=== PATIENT | female | born 1990 | race Two or more races ===

== ENCOUNTER 2016-12-21 22:49 | Emergency (ER) | payer SELFPAY ==
--- NOTE | 2016-12-21 23:10 | ER Document Report ---
ED Medical Screen (RME) - General Chief Complaint: Sore Throat Stated Complaint: SORE THROAT Time seen by provider: 23:08 Mode of Arrival: Ambulatory Information source: Patient Notes: 26-year-old female presents to ED for sore throat for the last week. Patient denies fevers. Last menstrual period 12/14/2016. I have greeted and performed a rapid initial assessment of this patient. A comprehensive ED assessment and evaluation of the patient, analysis of test results and completion of medical decision making process will be conducted by an additional ED providers. TRAVEL OUTSIDE OF THE [place] IN LAST 30 DAYS: No - Related Data Allergies/Adverse Reactions: No Known Allergies Allergy (Verified 06/13/15 19:58) Past Medical History - Immunizations Immunizations up to date: No Hx Diphtheria, Pertussis, Tetanus Vaccination: No Physical Exam - Vital signs Vitals: Temp Pulse Resp BP Pulse Ox 97.7 F 64 16 84/50 L 98 12/21/16 23:01 12/21/16 23:01 12/21/16 23:01 12/21/16 23:01 12/21/16 23:01 Course - Vital Signs Vital signs: Temp Pulse Resp BP Pulse Ox 97.7 F 64 16 84/50 L 98 12/21/16 23:01 12/21/16 23:01 12/21/16 23:01 12/21/16 23:01 12/21/16 23:01
--- NOTE | 2016-12-22 02:46 | ER Document Report ---
ED ENT - General Chief Complaint: Sore Throat Stated Complaint: SORE THROAT Time seen by provider: 02:38 Mode of Arrival: Ambulatory Notes: 26-year-old female presents to ED a cough runny nose sore throat for a week. She denies having any fevers. TRAVEL OUTSIDE OF THE [place] IN LAST 30 DAYS: No - HPI Patient complains to provider of: Throat problem Onset: Last week Onset/Duration: Intermittent Quality of pain: Sharp Severity: Moderate Pain Level: 3 Location of pain: Throat Associated symptoms: Cough, Runny nose, Sinus drainage, Sore throat. denies: Fever Similar symptoms previously: Yes Recently seen / treated by doctor: No - Related Data Allergies/Adverse Reactions: No Known Allergies Allergy (Verified 12/22/16 01:36) Past Medical History - General Information source: Patient - Social History Smoking Status: Current Every Day Smoker Cigarette use (# per day): Yes - 1 ppd Chew tobacco use (# tins/day): No Smoking Education Provided: Yes - less than a minute Frequency of alcohol use: None Drug Abuse: None Occupation: patient observer Lives with: Family Family History: CAD, CVA, DM, Hyperlipidemia, Hypertension, Malignancy, Thyroid Disfunction, Other - Mother has asthma Patient has suicidal ideation: No Patient has homicidal ideation: No - Past Medical History Cardiac Medical History: Reports: None Pulmonary Medical History: Reports: None EENT Medical History: Reports: None Neurological Medical History: Reports: None Endocrine Medical History: Reports: None Renal/ Medical History: Reports: None Malignancy Medical History: Reports: None GI Medical History: Reports: None Musculoskeltal Medical History: Reports None Skin Medical History: Reports None Psychiatric Medical History: Reports: None Traumatic Medical History: Reports: None Infectious Medical History: Reports: None Surgical Hx: Negative - Immunizations Immunizations up to date: No Hx Diphtheria, Pertussis, Tetanus Vaccination: No Review of Systems - Review of Systems Constitutional: Fever, Recent illness EENT: Nose discharge, Sinus discharge Cardiovascular: No symptoms reported Respiratory: Cough Gastrointestinal: No symptoms reported Genitourinary: No symptoms reported Female Genitourinary: No symptoms reported Musculoskeletal: No symptoms reported Skin: No symptoms reported Hematologic/Lymphatic: No symptoms reported Neurological/Psychological: No symptoms reported Physical Exam - Vital signs Vitals: Temp Pulse Resp BP Pulse Ox 97.7 F 64 16 84/50 L 98 12/21/16 23:01 12/21/16 23:01 12/21/16 23:01 12/21/16 23:01 12/21/16 23:01 Interpretation: Normal Notes: Temp 97.8 apical pulse 56 O2 sat 97% blood pressure 93/57 with respirations of 17 - General General appearance: Appears well, Alert - HEENT Head: Normocephalic, Atraumatic Eyes: Normal Pupils: PERRL Ears: Normal External canal: Normal Tympanic membrane: Normal Sinus: Normal Nasal: Purulent discharge, Swelling Mouth/Lips: Normal Mucous membranes: Normal Pharynx: Erythema, Post nasal drainage Neck: Normal - Respiratory Respiratory status: No respiratory distress Chest status: Nontender Breath sounds: Nonproductive cough Chest palpation: Normal - Cardiovascular Rhythm: Regular Heart sounds: Normal auscultation Murmur: No - Abdominal Inspection: Normal Distension: No distension Bowel sounds: Normal Tenderness: Nontender Organomegaly: No organomegaly - Back Back: Normal, Nontender - Extremities General upper extremity: Normal inspection, Nontender, Normal color, Normal ROM , Normal temperature General lower extremity: Normal inspection, Nontender, Normal color, Normal ROM , Normal temperature, Normal weight bearing. No: Gustavo's sign - Neurological Neuro grossly intact: Yes Cognition: Normal Orientation: AAOx4 Rene Coma Scale Eye Opening: Spontaneous [place] Coma Scale Verbal: Oriented [place] Coma Scale Motor: Obeys Commands Rene Coma Scale Total: 15 Speech: Normal Motor strength normal: LUE, RUE, LLE, RLE Sensory: Normal - Psychological Associated symptoms: Normal affect, Normal mood - Skin Skin Temperature: Warm Skin Moisture: Dry Skin Color: Normal Course - Vital Signs Vital signs: Temp Pulse Resp BP Pulse Ox 97.7 F 64 16 84/50 L 98 12/21/16 23:01 12/21/16 23:01 12/21/16 23:01 12/21/16 23:01 12/21/16 23:01 Discharge - Discharge Clinical Impression: Sore throat (viral) Upper respiratory infection Qualifiers: URI type: unspecified URI Qualified Code(s): J06.9 - Acute upper respiratory infection, unspecified Condition: Stable Disposition: HOME, SELF-CARE Instructions: Family Physicians / Practices Additional Instructions: UPPER RESPIRATORY ILLNESS: You have a viral infection of the respiratory passages -- a "cold." This common infection causes nasal congestion, drainage, and often sore throat and cough. It is highly contagious. The disease usually lasts about 10 to 14 days. There is no "cure" for the viral infection -- it must run its course. If there is a complication, such as bacterial infection in the nose, sinuses, middle ear, or bronchial tubes, antibiotics may be required. The antibiotics won't affect the virus. Drink plenty of fluids. A humidifier may help. An expectorant medication or decongestant may make you more comfortable. Use acetaminophen or ibuprofen for fever or aches. See the doctor if fever persists over two days, if there is any significant worsening of your symptoms, or if you simply fail to improve as expected. SORE THROAT: Sore throats may be caused by viruses, bacteria, or fungi. Most are due to a virus, and must get better on their own. Bacterial sore throats, particularly those due to "strep," need treatment with antibiotics. If an antibiotic is prescribed, be sure to take the medication for a full 10 days. Failure to take the antibiotic can result in complications such as rheumatic fever. Sometimes, an injection of antibiotics is given instead of pills or liquid. This single "shot" is equal in effectiveness to the oral medication. To relieve symptoms, take acetaminophen for pain. Sip clear liquids frequently, or eat popsicles or ice chips. Anesthetic sprays or lozenges may help. Make sure the air in the room is not too dry. Avoid using decongestants or antihistamines. Call the doctor if there is no improvement in two days, or if you have difficulty breathing, increasing throat pain, high fever, rash, or frequent vomiting. DECONGESTANT MEDICATION: A decongestant medicine has been prescribed. Often this medicine is combined in the same tablet with an antihistamine or expectorant. This type of medicine is helpful in treating a bad cold or sinus condition, as well as in treatment of the nasal congestion of hay fever. It is not of much benefit for lung infections. Decongestant medicines are related to stimulants. They can cause an increase in blood pressure and heart rate. Persons with heart disease and high blood pressure should not take decongestants without discussing this with the physician. If you develop palpitations, chest pain, headache, or tremors, stop the medicine and consult your physician. COUGH-SUPPRESSANT & EXPECTORANT MEDICATION: You are to use a cough medication as needed for relief of symptoms. This medicine is a combination of an expectorant (to make the mucous thinner and more easily "coughed up") and a cough suppressant (to reduce the frequency of coughing). The cough-suppressant medicine is related to narcotics. You may experience mild nausea and sleepiness. Some patients who are very sensitive to narcotics may have stomach pain from this medicine. Taking the medicine with food reduces these side effects. Do not drive or work with machinery until you know how this medicine affects you. The expectorant should have no side effects. Iodine-containing expectorants (such as organidin) should not be taken by persons with active thyroid disease unless approved by your doctor. Call the doctor if you develop shortness of breath, hives, rash, itching, lightheadedness, or severe nausea and vomiting. USE OF ACETAMINOPHEN (Tylenol): Acetaminophen may be taken for pain relief or fever control. It's much safer than aspirin, offering a wider range of "safe" dosages. It is safe during . Some brand names are Tylenol, Panadol, Datril, Anacin 3, Tempra, and Liquiprin. Acetaminophen can be repeated every four hours. The following are maximum recommended dosages: >89 pounds or adults 650 mg to 900 mg Acetaminophen can be repeated every four hours. Maximum dose not to exceed 4000 mg a day. SMOKING: If you smoke, you should stop smoking. The tar and chemicals in cigarette smoke are harmful. Smoking has been shown to cause: emphysema chronic bronchitis lung cancer mouth and throat cancer stomach and pancreas cancer premature aging defects In addition, smoking increases ear and lung infections in children of smokers. Gargle after each meal and at bedtime with following solution. 1 tablespoon of table salt 1 teaspoon of baking soda 1 quart of boiling water Mixed ingredients 4 and a quart jar with a limited and use 5-10 mL to gargle each time. FOLLOW-UP CARE: If you have been referred to a physician for follow-up care, call the physician s office for an appointment as you were instructed or within the next two days. If you experience worsening or a significant change in your symptoms, notify the physician immediately or return to the Emergency Department at any time for re-evaluation. Forms: Return to Work, Smoking Cessation Education
[2016-12-22 03:41] VITALS: BP 93/57
== END 2016-12-22 03:41 | disposition home or self-care (01) ==
LOC: ER 22:49
DX: J06.9 Acute upper respiratory infection, unspecified (principal); J02.9 Acute pharyngitis, unspecified; R05 Cough; R09.89 Other specified symptoms and signs involving the circulatory and respiratory systems; F17.210 Nicotine dependence, cigarettes, uncomplicated
CPT/HCPCS: 87070; 87880; 99283

== ENCOUNTER 2017-06-07 12:51 | Emergency (ER) | payer MEDICAID ==
--- NOTE | 2017-06-07 14:22 | ER Document Report ---
ED Medical Screen (RME) - General TRAVEL OUTSIDE OF THE [place] IN LAST 30 DAYS: No <NCIOLLE LEUNG - Last Filed: 06/07/17 14:04> <ANAYA BRITTON - Last Filed: 06/07/17 21:11> - General Chief Complaint: Abdominal Pain Stated Complaint: DIZZINESS, STOMACH PAIN Time Seen by Provider: 06/07/17 14:00 Notes: Patient is a 27 year old female presenting to the emergency department for abdominal pain. Patient states she had a positive test on Saturday and her last menstrual cycle was on 04/05/17. Patient has had some abdominal cramping , dizziness, and sore breasts for the past week. Patient also states she felt "short of breath for a while." Patient's symptoms are intermittent. Patient is A1. Patient states she had an a long time ago. Patient has not seen OBGYN or had an ultrasound. Patient has an appointment for OB next week. (NICOLLE LEUNG) - Related Data Allergies/Adverse Reactions: No Known Allergies Allergy (Verified 06/07/17 12:57) Past Medical History - Social History Cigarette use (# per day): No Chew tobacco use (# tins/day): No Frequency of alcohol use: None Drug Abuse: None Renal/ Medical History: Denies: Hx Peritoneal Dialysis Surgical Hx: Negative - Immunizations Immunizations up to date: No Hx Diphtheria, Pertussis, Tetanus Vaccination: No <NICOLLE LEUNG - Last Filed: 06/07/17 14:04> Physical Exam <NICOLLE LEUNG - Last Filed: 06/07/17 14:04> <ANAYA BRITTON - Last Filed: 06/07/17 21:11> - Vital signs Vitals: Temp Pulse Resp BP Pulse Ox 98.5 F 76 16 102/53 L 100 06/07/17 12:56 06/07/17 12:56 06/07/17 12:56 06/07/17 12:56 06/07/17 12:56 - Notes Notes: GENERAL: Alert, interacts well. No acute distress. LUNGS: No respiratory distress. ABDOMEN: Soft, non-tender. Non-distended. Bowel sounds present in all 4 quadrants. (NICOLLE LEUNG) Course - Laboratory Result Diagrams: 06/07/17 14:10 06/07/17 14:04 <ANAYA BRITTON - Last Filed: 06/07/17 21:11> - Vital Signs Vital signs: Temp Pulse Resp BP Pulse Ox 98.5 F 68 15 99/51 L 99 06/07/17 12:56 06/07/17 18:36 06/07/17 18:36 06/07/17 18:36 06/07/17 18:36 - Laboratory Laboratory results interpreted by me: 06/07/17 06/07/17 13:30 14:04 BUN 6 L Creatinine 0.48 L Beta HCG, Quant [id number] H Ur Leukocyte Esterase SMALL H Doctor's Discharge <NICOLLE LEUNG - Last Filed: 06/07/17 14:04> <ANAYA BRITTON - Last Filed: 06/07/17 21:11> - Discharge Clinical Impression: Abdominal pain, Condition: Good Disposition: HOME, SELF-CARE Instructions: Abdominal Pain ([facility]) Additional Instructions: Return for any problems or concerns. Call to arrange follow-up with a dairy and food laboratory assistant. Ultrasound today shows you to be approximately 8 weeks 4 days . Prescriptions: Vit #105/Iron/FA/Dha [Prena1 True Combo Pack] 1 each PO DAILY #30 combo..pkg Forms: Smoking Cessation Education, Return to Work Referrals: SHANE CROUCH MD [ACTIVE STAFF] - Follow up in 1 week Scribe Documentation - Scribe Written by Scribe:: Lois Montoya 06/07/17 [id number] acting as scribe for :: Pamela <NICOLLE LEUNG - Last Filed: 06/07/17 14:04>
[2017-06-07 14:39] LABS: ABSOLUTE EOSINOPHILS # (AUTO) 0.3 10^3/uL (0.0-0.6); ABSOLUTE LYMPHOCYTES (AUTO) 1.7 10^3/uL (0.5-4.7); ABSOLUTE MONOCYTES (AUTO) 0.3 10^3/uL (0.1-1.4); BASOPHILS % (AUTO) 0.6 % (0-2); EOSINOPHILS % (AUTO) 3.5 % (0-6); HEMATOCRIT 37.9 % (36.0-47.0); HEMOGLOBIN 12.7 g/dL (12.0-15.5); HGB HCT DIFFERENCE 0.2; LYMPHOCYTES % (AUTO) 23.6 % (13-45); MEAN CORPUSCULAR HEMOGLOBIN 30.4 pg (27.0-33.4); MEAN CORPUSCULAR HGB CONC 33.5 g/dL (32.0-36.0); MEAN CORPUSCULAR VOLUME 91 fl (80-97); MONOCYTES % (AUTO) 4.7 % (3-13); RED BLOOD COUNT 4.17 10^6/uL (3.72-5.28); SEGMENTED NEUTROPHILS % (AUTO) 67.6 % (42-78); WHITE BLOOD COUNT 7.3 10^3/uL (4.0-10.5)
[2017-06-07 14:42] LABS: ALANINE AMINOTRANSFERASE 20 U/L (9-52); ALBUMIN 4.2 g/dL (3.5-5.0); ALKALINE PHOSPHATASE 38 U/L (38-126); ANION GAP 9 (5-19); ASPARTATE AMINO TRANSFERASE 22 U/L (14-36); BILIRUBIN,DIRECT 0.3 mg/dL (0.0-0.4); BILIRUBIN,TOTAL 0.8 mg/dL (0.2-1.3); BLOOD UREA NITROGEN 6 mg/dL (7-20); CALCIUM 9.1 mg/dL (8.4-10.2); CARBON DIOXIDE 24 mmol/L (22-30); CHLORIDE 104 mmol/L (98-107); CREATININE RESULT 0.48 mg/dL (0.52-1.25); GLUCOSE 80 mg/dL (75-110); POTASSIUM 4.4 mmol/L (3.6-5.0); TOTAL PROTEIN 7.3 g/dL (6.3-8.2)
[2017-06-07 15:14] LABS: APPEARANCE,URINE CLEAR; BILIRUBIN,URINE NEGATIVE (NEGATIVE); GLUCOSE, URINE NEGATIVE (NEGATIVE); KETONES,URINE NEGATIVE (NEGATIVE); LEUKOCYTE ESTERASE,URINE SMALL (NEGATIVE); NITRITE,URINE NEGATIVE (NEGATIVE); PROTEIN,URINE NEGATIVE (NEGATIVE); URINE SPECIFIC GRAVITY 1.005; UROBILINOGEN,URINE NEGATIVE mg/dL (<2.0)
--- NOTE | 2017-06-07 16:35 | RADIOLOGY REPORT (SQ) ---
EXAM DESCRIPTION: U/S OB TRANSVAG W/DOPPLER COMPLETED DATE/TIME: 06/07/2017 4:24 pm REASON FOR STUDY: abd pain, +preg, r/o ectopic COMPARISON: None. TECHNIQUE: Transvaginal static and realtime grayscale images acquired of the pelvis. Additional juan cted spectral and color Doppler images recorded. All images stored on PACs. bHC,260 LIMITATIONS: None. FINDINGS: FETUS: Living intrauterine . EGA: 8 weeks 4 day EMMANUEL: 01/13/2018 FHR: 175 beats per minute. SUBCHORIONIC BLEED: No SIZE OF BLEED: Not applicable. UTERUS: No masses. No anomalies. CERVICAL LENGTH: 3.7 cm Closed. RIGHT ADNEXA: Right ovary was not visualized No adnexal free fluid. No adnexal masses. LEFT ADNEXA: Normal ovary with normal vascular flow. Isoechoic area is identified measuring 1.5 x 1.9 x 1.6 cm most consistent with a corpus lutein cyst. FREE FLUID: None. OTHER: No other significant finding. IMPRESSION: LIVING INTRAUTERINE . EGA 8 weeks 4 days Trimester of : First - 0 to 13 weeks. TECHNICAL DOCUMENTATION: JOB ID: [id number] [employer] All Rights Reserved
[2017-06-07 18:37] VITALS: BP 99/51
--- NOTE | 2017-06-07 19:12 | ER Document Report ---
ED GI/ - General Chief Complaint: Abdominal Pain Stated Complaint: DIZZINESS, ABDOMINAL PAIN Time Seen by Provider: 06/07/17 14:00 Mode of Arrival: Ambulatory Information source: Patient TRAVEL OUTSIDE OF THE [place] IN LAST 30 DAYS: No - HPI Notes: 06/07/17 19:13 This is a 27-year-old G2 female who presents with the following complaint per RN me. "Patient is a 27 year old female presenting to the emergency department for abdominal pain. Patient states she had a positive test on Saturday and her last menstrual cycle was on 04/05/17. Patient has had some abdominal cramping, dizziness, and sore breasts for the past week. Patient also states she felt "short of breath for a while." Patient's symptoms are intermittent. Patient is A1. Patient states she had an a long time ago. Patient has not seen OBGYN or had an ultrasound. Patient has an appointment for OB next week." She confirms that she had a positive test but no vaginal bleeding or discharge. She has had some mild lower abdominal cramping and some mild dizziness. Regarding her shortness of breath, this is been ongoing for a long time even prior to her . She has no shortness of breath now. She thought maybe she had asthma as it runs in the family. She has not yet seen an OB doctor. - Related Data Allergies/Adverse Reactions: No Known Allergies Allergy (Verified 06/07/17 12:57) Past Medical History - Social History Smoking Status: Current Every Day Smoker Cigarette use (# per day): No Chew tobacco use (# tins/day): No Frequency of alcohol use: None Drug Abuse: None Family History: CAD, CVA, DM, Hyperlipidemia, Hypertension, Malignancy, Thyroid Disfunction, Other - Mother has asthma Renal/ Medical History: Denies: Hx Peritoneal Dialysis Surgical Hx: Negative - Immunizations Immunizations up to date: No Hx Diphtheria, Pertussis, Tetanus Vaccination: No Review of Systems - Review of Systems -: Yes All other systems reviewed and negative Physical Exam - Vital signs Vitals: Temp Pulse Resp BP Pulse Ox 98.5 F 76 16 102/53 L 100 06/07/17 12:56 06/07/17 12:56 06/07/17 12:56 06/07/17 12:56 06/07/17 12:56 Interpretation: Normal - Notes Notes: GENERAL: VS as per nursing doc. Well-appearing, well-nourished and in no acute distress. HEAD: Atraumatic, normocephalic. EYES: Pupils equal round and reactive to light, extraocular movements intact, sclera anicteric, no conjunctival injection or discharge. ENT: Nares patent, oropharynx clear without exudates, moist mucous membranes. NECK: Normal range of motion, supple without lymphadenopathy. LUNGS: Breath sounds clear to auscultation bilaterally and equal. No wheezes rales or rhonchi. HEART: Regular rate and rhythm without murmurs. ABDOMEN: Soft, non-tender, normoactive bowel sounds. No guarding, no rebound. No masses appreciated. No [place] sign. BACK: No CVA tenderness. EXTREMITIES: Normal range of motion, no calf tenderness, no edema. NEUROLOGICAL: Cranial nerves grossly intact. Normal speech. Normal sensory and motor exams. No gross cerebellar abnormalities. PSYCH: Normal mood, normal affect. SKIN: Warm, dry, normal turgor, no lesions noted. Course - Vital Signs Vital signs: Temp Pulse Resp BP Pulse Ox 98.5 F 68 15 99/51 L 99 06/07/17 12:56 06/07/17 18:36 06/07/17 18:36 06/07/17 18:36 06/07/17 18:36 - Laboratory Result Diagrams: 06/07/17 14:10 06/07/17 14:04 Laboratory results interpreted by me: 06/07/17 06/07/17 13:30 14:04 BUN 6 L Creatinine 0.48 L Beta HCG, Quant [id number] H Ur Leukocyte Esterase SMALL H Discharge - Discharge Clinical Impression: Abdominal pain, Condition: Good Disposition: HOME, SELF-CARE Instructions: Abdominal Pain ([facility]) Additional Instructions: Return for any problems or concerns. Call to arrange follow-up with a roustabout crew pusher. Ultrasound today shows you to be approximately 8 weeks 4 days . Prescriptions: Vit #105/Iron/FA/Dha [Prena1 True Combo Pack] 1 each PO DAILY #30 combo..pkg Forms: Smoking Cessation Education Referrals: SHANE CROUCH MD [ACTIVE STAFF] - Follow up in 1 week
== END 2017-06-07 19:31 | disposition home or self-care (01) ==
LOC: ER 12:51
DX: O26.91 Pregnancy related conditions, unspecified, first trimester (principal); R10.9 Unspecified abdominal pain; R42 Dizziness and giddiness; O99.331 Smoking (tobacco) complicating pregnancy, first trimester
CPT/HCPCS: 36415; 76817; 80053; 81001; 84702; 85025; 86900; 86901; 93976; 99284

== ENCOUNTER 2017-12-11 16:00 | Outpatient (CLI) | payer MEDICAID | END 2017-12-11 17:40 | disposition home or self-care (01) | LOC: LC 16:00 | PROVIDERS: ATTEND Student in an Organized Health Care Education/Training Program | PROC: 4A1HXCZ Monitoring of Products of Conception, Cardiac Rate, External Approach (ICD-10-PCS; principal; 2017-12-11) | DX: O24.419 Gestational diabetes mellitus in pregnancy, unspecified control (principal); Z3A.35 35 weeks gestation of pregnancy | CPT/HCPCS: 59025 ==

== ENCOUNTER 2017-12-15 22:45 | Outpatient (CLI) | payer MEDICAID ==
--- NOTE | 2017-12-15 22:57 | Non Stress Test Report ---
Non Stress Test Datetime Report Generated by CPN: 12/15/2017 22:57 DEMOGRAPHIC EGA NST: 35.5 INDICATION Indication for Study: Diabetes Mellitus Indication for Study: Diabetes Mellitus VITAL SIGNS Temperature - NST: 97.6 Pulse - NST: 93 RESP - NST: 16 NBPSYS NST: 83 NBPDIA NST: 48 MONITORING Monitor Explained: Monitor Explained; Test Explained; Patient Verbalized Understanding Monitor Explained: Monitor Explained; Test Explained; Patient Verbalized Understanding Time on Monitor: 12/11/2017 16:14 Time on Monitor: 12/11/2017 16:10 Time off Monitor: 12/11/2017 17:33 NST Duration: 79 NST INTERVENTIONS NST Interventions: PO Hydration; Reposition Patient NST Interventions: PO Hydration; Reposition Patient Physician Notified NST: H Richardson CNM BABY A: [id number] BABY A Movement : Present Contraction Frequency : none Accelerations : 15X15 Decelerations : None Variability : Moderate 6-25bpm NST Review: Meets Criteria for Reactive NST NST Review and Verified By : Hien camp RNC NST Results: Reactive NST REPORT Report Trigger: Send Report
[2017-12-15 23:13] LABS: APPEARANCE,URINE SLIGHTLY-CLOUDY; BILIRUBIN,URINE NEGATIVE (NEGATIVE); COLOR,URINE YELLOW; GLUCOSE, URINE NEGATIVE (NEGATIVE); KETONES,URINE NEGATIVE (NEGATIVE); LEUKOCYTE ESTERASE,URINE SMALL (NEGATIVE); NITRITE,URINE NEGATIVE (NEGATIVE); PROTEIN,URINE NEGATIVE (NEGATIVE); URINE SPECIFIC GRAVITY 1.004; UROBILINOGEN,URINE NEGATIVE mg/dL (<2.0)
[2017-12-15 23:31] LABS: URINE AMPHETAMINES SCREEN NEGATIVE; URINE BARBITURATES SCREEN NEGATIVE; URINE BENZODIAZEPINES SCREEN NEGATIVE; URINE COCAINE SCREEN NEGATIVE; URINE MARIJUANA (THC) SCREEN NEGATIVE; URINE METHADONE SCREEN NEGATIVE; URINE PHENCYCLIDINE SCREEN NEGATIVE
[2017-12-16] MEDS ORDERED: RINGERS SOLUTION,LACTATED 1,000 ML IV PRN (00:49)
== END 2017-12-16 01:01 | disposition home or self-care (01) ==
LOC: LC 22:45
PROVIDERS: ATTEND Obstetrics & Gynecology Gynecology
PROC: 4A1HXCZ Monitoring of Products of Conception, Cardiac Rate, External Approach (ICD-10-PCS; principal; 2017-12-15)
DX: O24.913 Unspecified diabetes mellitus in pregnancy, third trimester (principal); O99.513 Diseases of the respiratory system complicating pregnancy, third trimester; J06.9 Acute upper respiratory infection, unspecified; Z3A.36 36 weeks gestation of pregnancy
CPT/HCPCS: 59025; 80307; 81005

== ENCOUNTER 2017-12-16 01:10 | Emergency (ER) | payer MEDICAID ==
[2017-12-16 01:41] VITALS: BP 89/72
[2017-12-16] MEDS ORDERED: ACETAMINOPHEN 325 MG TABLET PO ONE (01:48)
[2017-12-16] MEDS ORDERED: LIDOCAINE 5% (700 MG) TRANSDERMAL ADH..PATCH TP ONE (01:48)
[2017-12-16 02:39] LABS: A TYPE INFLUENZA AG POSITIVE (NEGATIVE); B INFLUENZA AG NEGATIVE (NEGATIVE)
--- NOTE | 2017-12-16 03:00 | RADIOLOGY REPORT (SQ) ---
EXAM DESCRIPTION: CHEST PA/LAT CLINICAL HISTORY: cough sob COMPARISON: 06/10/2016 FINDINGS: Frontal and lateral views of the chest. The cardiomediastinal silhouette has normal size and contour. No consolidation, pneumothorax, or pleural effusion. No displaced rib fractures identified. Upper abdominal soft tissues are unremarkable. Low lung volumes. IMPRESSION: 1. No acute pulmonary process identified.
[2017-12-16] MEDS ORDERED: OSELTAMIVIR PHOSPHATE 75 MG CAPSULE PO ONE (03:26)
--- NOTE | 2017-12-16 03:29 | ER Document Report ---
ED General - General Chief Complaint: Cold Symptoms Stated Complaint: COLD SYMPTOMS Time Seen by Provider: 12/16/17 01:46 TRAVEL OUTSIDE OF THE [place] IN LAST 30 DAYS: No - HPI Patient complains to provider of: Feeling unwell Notes: Feeling unwell cough complaining of pain with cough ongoing since Saturday. Patient denies any sick contacts patient currently is approximately 33 weeks . Patient was seen in OB and then discharged told to come to the ER for further evaluation of her flulike symptoms. Patient denies getting a flu shot this year. Upon my evaluation patient looks uncomfortable otherwise nontoxic looking. Patient is also complaining of some lower back pain. Patient states a urinalysis was performed in OB triage with no signs of infection. - Related Data Allergies/Adverse Reactions: No Known Allergies Allergy (Verified 12/16/17 00:48) Past Medical History - Social History Smoking Status: Current Every Day Smoker Family History: CAD, CVA, DM, Hyperlipidemia, Hypertension, Malignancy, Thyroid Disfunction, Other - Mother has asthma Patient has suicidal ideation: No Patient has homicidal ideation: No Renal/ Medical History: Denies: Hx Peritoneal Dialysis - Immunizations Immunizations up to date: No Hx Diphtheria, Pertussis, Tetanus Vaccination: No Review of Systems - Review of Systems Constitutional: Other - Flulike symptoms EENT: No symptoms reported Cardiovascular: No symptoms reported Respiratory: No symptoms reported Gastrointestinal: No symptoms reported Genitourinary: No symptoms reported Female Genitourinary: No symptoms reported Musculoskeletal: No symptoms reported Skin: No symptoms reported Hematologic/Lymphatic: No symptoms reported Neurological/Psychological: No symptoms reported Physical Exam - Vital signs Vitals: Temp Pulse Resp BP Pulse Ox 99.9 F 110 H 16 89/72 L 98 12/16/17 01:14 12/16/17 01:14 12/16/17 01:14 12/16/17 01:14 12/16/17 01:14 Interpretation: Normal - General General appearance: Appears well, Alert - HEENT Head: Normocephalic, Atraumatic Eyes: Normal Pupils: PERRL - Respiratory Respiratory status: No respiratory distress Chest status: Nontender Breath sounds: Normal Chest palpation: Normal - Cardiovascular Rhythm: Regular Heart sounds: Normal auscultation Murmur: No - Abdominal Inspection: Normal Distension: No distension Bowel sounds: Normal Tenderness: Nontender Organomegaly: No organomegaly - Back Back: Normal, Nontender - Extremities General upper extremity: Normal inspection, Nontender, Normal color, Normal ROM , Normal temperature General lower extremity: Normal inspection, Nontender, Normal color, Normal ROM , Normal temperature, Normal weight bearing. No: Gustavo's sign - Neurological Neuro grossly intact: Yes Cognition: Normal Orientation: AAOx4 Rene Coma Scale Eye Opening: Spontaneous Maynard Coma Scale Verbal: Oriented Maynard Coma Scale Motor: Obeys Commands Rene Coma Scale Total: 15 Speech: Normal Motor strength normal: LUE, RUE, LLE, RLE Sensory: Normal - Psychological Associated symptoms: Normal affect, Normal mood - Skin Skin Temperature: Warm Skin Moisture: Dry Skin Color: Normal Course - Re-evaluation Re-evalutation: 12/16/17 06:04 Patient laboratory studies were reviewed from OB triage. No signs of overt infection. Patient had chest x-ray performed. No signs of pneumonia. Patient did return positive for influenza A. Patient will be started on Tamiflu patient was encouraged to drink plenty of fluids also progression of her Reglan was given to the patient for any nausea that she may incur. Patient states understanding of her diagnosis and will be discharged home - Vital Signs Vital signs: Temp Pulse Resp BP Pulse Ox 99.9 F 90 18 106/64 100 12/16/17 01:14 12/16/17 01:42 12/16/17 01:42 12/16/17 01:40 12/16/17 01:42 Discharge - Discharge Clinical Impression: Influenza A Condition: Good Disposition: HOME, SELF-CARE Instructions: Influenza ([facility]) [id number] Additional Instructions: Your testing today shows that your positive for influenza type A. Please make sure you are drinking plenty water to stay hydrated. You can expect to have fevers chills body aches upper respiratory symptoms. Please take Tamiflu as prescribed. Please make sure you informed your [employer] that she was diagnosed with influenza type a on your next visit. Return to ER for any worsening of her symptoms or any other concerns. Prescriptions: Metoclopramide HCl [Reglan] 5 mg PO Q6 #30 tablet Oseltamivir Phosphate [Tamiflu 75 mg Capsule] 75 mg PO BID 5 Days capsule Forms: Return to Work Referrals: LESLEY MANCERA MD [Primary Care Provider] - Follow up as needed
== END 2017-12-16 03:36 | disposition home or self-care (01) ==
LOC: ER 01:10
DX: O99.519 Diseases of the respiratory system complicating pregnancy, unspecified trimester (principal); J10.1 Influenza due to other identified influenza virus with other respiratory manifestations; O26.899 Other specified pregnancy related conditions, unspecified trimester; R05 Cough; O99.330 Smoking (tobacco) complicating pregnancy, unspecified trimester; O99.89 Other specified diseases and conditions complicating pregnancy, childbirth and the puerperium; M54.5 Low back pain; Z3A.00 Weeks of gestation of pregnancy not specified
CPT/HCPCS: 99284; 87804; 71046; J3490 ×3

== ENCOUNTER 2018-01-08 16:32 | Outpatient (CLI) | payer MEDICAID ==
--- NOTE | 2018-01-08 16:35 | Non Stress Test Report ---
Non Stress Test Datetime Report Generated by CPN: 01/08/2018 16:35 DEMOGRAPHIC EGA NST: 36.0 INDICATION Indication for Study: Ordered by Provider MONITORING Monitor Explained: Monitor Explained; Test Explained; Patient Verbalized Understanding Time on Monitor: 12/15/2017 22:58 Time off Monitor: 12/16/2017 00:30 NST Duration: 92 NST INTERVENTIONS NST Interventions: IV Fluids Physician Notified NST: Dr. Holman BABY A: [id number] BABY A Movement : Present Contraction Frequency : x1 FHR Baseline : 150 Accelerations : 15X15 Decelerations : None Variability : Moderate 6-25bpm NST Review: Meets Criteria for Reactive NST NST Review and Verified By : sarath ELAM Results: Reactive NST REPORT Report Trigger: Send Report
--- NOTE | 2018-01-08 17:17 | Non Stress Test Report ---
Non Stress Test Datetime Report Generated by CPN: 01/08/2018 17:17 DEMOGRAPHIC EGA NST: 39.3 INDICATION Indication for Study: Diabetes Mellitus; Ordered by Provider MONITORING Monitor Explained: Monitor Explained; Test Explained Time on Monitor: 01/08/2018 16:43 Time off Monitor: 01/08/2018 17:07 NST Duration: 24 NST INTERVENTIONS NST Interventions: PO Hydration; Reposition Patient Physician Notified NST: Dr Leigh BABY A Contraction Frequency : denies FHR Baseline : 135 Decelerations : None NST Review: Meets Criteria for Reactive NST NST Review and Verified By : BL ROULUND, RN NST Results: Reactive NST REPORT Report Trigger: Send Report
== END 2018-01-08 16:59 | disposition home or self-care (01) ==
LOC: LC 16:32
PROVIDERS: ATTEND Obstetrics & Gynecology
PROC: 4A1HXCZ Monitoring of Products of Conception, Cardiac Rate, External Approach (ICD-10-PCS; principal; 2018-01-08)
DX: O24.419 Gestational diabetes mellitus in pregnancy, unspecified control (principal); Z3A.39 39 weeks gestation of pregnancy
CPT/HCPCS: 59025

== ENCOUNTER 2018-01-15 16:41 | Outpatient (CLI) | payer MEDICAID | END 2018-01-15 17:50 | disposition home or self-care (01) | LOC: LC 16:41 | PROVIDERS: ATTEND Obstetrics & Gynecology Gynecology | PROC: 4A1HXCZ Monitoring of Products of Conception, Cardiac Rate, External Approach (ICD-10-PCS; principal; 2018-01-15) | DX: Z34.93 Encounter for supervision of normal pregnancy, unspecified, third trimester (principal); Z3A.40 40 weeks gestation of pregnancy | CPT/HCPCS: 59025 ==

== ENCOUNTER 2018-01-16 03:57 | Inpatient (IN) | payer MEDICAID ==
[2018-01-16] MEDS ORDERED: RINGERS SOLUTION,LACTATED 1,000 ML IV ONE (04:30)
[2018-01-16] MEDS ORDERED: RINGERS SOLUTION,LACTATED 1,000 ML IV PRN (04:30)
[2018-01-16 04:46] LABS: APPEARANCE,URINE SLIGHTLY-CLOUDY; BILIRUBIN,URINE NEGATIVE (NEGATIVE); COLOR,URINE YELLOW; GLUCOSE, URINE NEGATIVE (NEGATIVE); KETONES,URINE NEGATIVE (NEGATIVE); LEUKOCYTE ESTERASE,URINE TRACE (NEGATIVE); NITRITE,URINE NEGATIVE (NEGATIVE); PROTEIN,URINE NEGATIVE (NEGATIVE); URINE SPECIFIC GRAVITY 1.015
[2018-01-16 04:47] LABS: AMNISURE (ROM) POSITIVE (NEGATIVE)
[2018-01-16 05:03] LABS: URINE AMPHETAMINES SCREEN NEGATIVE; URINE BARBITURATES SCREEN NEGATIVE; URINE BENZODIAZEPINES SCREEN NEGATIVE; URINE COCAINE SCREEN NEGATIVE; URINE MARIJUANA (THC) SCREEN NEGATIVE; URINE METHADONE SCREEN NEGATIVE; URINE PHENCYCLIDINE SCREEN NEGATIVE
[2018-01-16] MEDS ORDERED: FENTANYL/BUPIVACAINE/NS/PF 200 MCG/100 ML RTUINJ EPI ONE (05:05)
[2018-01-16] MEDS ORDERED: EPHEDRINE SULFATE INJ 50 MG/1 ML AMPULE ONE (05:05)
[2018-01-16] MEDS ORDERED: LIDOCAINE 1% INJ-PF (10 MG/ML) 30 ML SDV ONE (05:05)
[2018-01-16] MEDS ORDERED: OXYTOCIN/NORMAL SALINE 20 UNIT/1,000 ML RTUINJ ONE (05:05)
[2018-01-16] MEDS ORDERED: MISOPROSTOL 0.2 MG TABLET ONE (05:05)
[2018-01-16] MEDS ORDERED: BUPIVACAINE HCL 0.25 % INJ/PF (2.5 MG/1 ML) 30 ML VIAL ONE (05:05)
[2018-01-16 05:24] LABS: ABSOLUTE EOSINOPHILS # (AUTO) 0.2 10^3/uL (0.0-0.6); ABSOLUTE LYMPHOCYTES (AUTO) 1.8 10^3/uL (0.5-4.7); ABSOLUTE MONOCYTES (AUTO) 0.6 10^3/uL (0.1-1.4); ABSOLUTE NEUT (AUTO) 10.3 10^3/uL (1.7-8.2); BASOPHILS % (AUTO) 0.4 % (0-2); EOSINOPHILS % (AUTO) 1.6 % (0-6); HEMATOCRIT 33.1 % (36.0-47.0); HEMOGLOBIN 11.2 g/dL (12.0-15.5); LYMPHOCYTES % (AUTO) 13.8 % (13-45); MEAN CORPUSCULAR HEMOGLOBIN 30.9 pg (27.0-33.4); MEAN CORPUSCULAR HGB CONC 33.9 g/dL (32.0-36.0); MEAN CORPUSCULAR VOLUME 91 fl (80-97); MONOCYTES % (AUTO) 4.7 % (3-13); PLATELET COUNT 224 10^3/uL (150-450); RED BLOOD COUNT 3.63 10^6/uL (3.72-5.28); RED CELL DISTRIBUTION WIDTH 14.1 % (11.5-14.0); SEGMENTED NEUTROPHILS % (AUTO) 79.5 % (42-78); TOTAL CELLS COUNTED % (AUTO) 100 %; WHITE BLOOD COUNT 12.9 10^3/uL (4.0-10.5)
--- NOTE | 2018-01-16 09:14 | L&D Progress Notes ---
PROGRESS NOTES Datetime Report Generated by CPN: 01/16/2018 09:13 PROGRESS NOTE Impression: Normal Progression of Labor Procedures: Artificial ROM; Sterile Vag Exam Plan: Continue Present Management Informed Consent Obtained: Vaginal Delivery Vital Signs : Reviewed; Within Normal Limits Comment: Feeling pressure, complete, arom, thick mec, Cat 1 strip, irreg uc's, anticipate MEMBRANES Membranes: Ruptured Amniotic Fluid Color: Meconium, Heavy FETUS A FHR - Baseline: 30 Monitoring: External US Accelerations: 15X15 FHR Category: Category I SIGNATURE SIGNATURE: [id number];[id number] SIGNATURE: [id number] SIGNATURE: [id number] SIGNATURE: [id number] Assignment: Kiley Leigh MD Signature: with User ID: [email or web address] : with User ID: [email or web address]
[2018-01-16] MEDS ORDERED: DIPH/PERTUSS(ACELL)/TETANUS VAC/PF 0.5 ML SYR (>=10YO) IM PRN (11:24)
[2018-01-16] MEDS ORDERED: MEASLES,MUMPS&RUBELLA VACC/PF 0.5 ML VIAL SUBCUT PRN (11:24)
[2018-01-16] MEDS ORDERED: PROMETHAZINE HCL INJ 25 MG/1 ML VIAL IV PRN (11:24)
[2018-01-16] MEDS ORDERED: DIBUCAINE 1% OINTMENT 28 GM TP PRN (11:24)
[2018-01-16] MEDS ORDERED: DIPHENHYDRAMINE HCL 25 MG CAPSULE PO PRN (11:24)
[2018-01-16] MEDS ORDERED: MAGNESIUM HYDROXIDE SUSP 30 ML UDCUP PO PRN (11:24)
[2018-01-16] MEDS ORDERED: OXYTOCIN/NORMAL SALINE 20 UNIT/1,000 ML RTUINJ IV PRN (11:24)
[2018-01-16] MEDS ORDERED: PSEUDOEPHEDRINE HCL 30 MG TABLET PO PRN (11:24)
[2018-01-16] MEDS ORDERED: NA PHOS,M-B/NA PHOS,DI-BA (ADULT) 133 ML ENEMA PR PRN (11:24)
[2018-01-16] MEDS ORDERED: GLYCERIN/WITCH HAZEL LEAF 1 EACH MED..PAD TP PRN (11:24)
[2018-01-16] MEDS ORDERED: PROMETHAZINE HCL 25 MG SUPP.RECT PR PRN (11:24)
[2018-01-16] MEDS ORDERED: MISOPROSTOL 0.2 MG TABLET PR PRN (11:24)
[2018-01-16] MEDS ORDERED: PROMETHAZINE HCL 25 MG TABLET PO PRN (11:24)
[2018-01-16] MEDS ORDERED: BENZOCAINE/MENTHOL AEROSOL SPRAY 56 ML TOP PRN (11:24)
[2018-01-16] MEDS ORDERED: ACETAMINOPHEN WITH CODEINE #3 TABLET PO PRN (11:24)
[2018-01-16] MEDS ORDERED: ACETAMINOPHEN 650 MG SUPP.RECT PR PRN (11:24)
[2018-01-16] MEDS ORDERED: IBUPROFEN 800 MG TABLET ONE (11:42)
[2018-01-16] MEDS: IBUPROFEN 800 MG TABLET PO SCH ×2 (11:42→21:26)
[2018-01-16] MEDS ORDERED: METHYLERGONOVINE MALEATE INJ/PF 0.2 MG/1 ML AMPULE IV ONE (12:00)
[2018-01-16] MEDS ORDERED: METHYLERGONOVINE MALEATE INJ/PF 0.2 MG/1 ML AMPULE ONE (12:06)
--- NOTE | 2018-01-16 13:04 | Warning Signs in Babies ---
VOD Warning Signs Datetime Report Generated by [facility]: 01/16/2018 13:04 VOD#608 -Warning Signs in Babies: Viewed with Parent(s)/Family (12/11/2017 16:13:Alina Osorio RN)
--- NOTE | 2018-01-16 13:30 | Warning Signs in Babies ---
VOD Warning Signs Datetime Report Generated by [facility]: 01/16/2018 13:30 VOD#608 -Warning Signs in Babies: Viewed with Parent(s)/Family (01/16/2018 13:29:Alina Osorio RN)
--- NOTE | 2018-01-16 13:51 | Delivery Summary ---
Del Sum A-C Datetime Report Generated by CPN: 01/16/2018 13:51 DELIVERY PERSONNEL DELIVERY PERSONNEL: [id number] Delivery Doctor:: Kasandra Nesbitt CNM Labor and Delivery Nurse:: Alina Osorio RNfine arts model Nurse:: Milli Roberts, RNC MATERNAL INFORMATION Delivery Anesthesia: Epidural Medications After Delivery: Pitocin Bolus-Please Comment Meds After Delivery Comment: pitocin 20 units in 1 L NS Estimated Blood Loss (ml): 200 Maternal Complications: None Provider Comments: viable male from OA to LINO over ML lac, baby placed on mothers abd. NC x 2, loose, unable to reduce before delivery. Cord clamped and cut after 2 min by FOB. Spont delivery of grossly nl intact placenta, 3 VC, EBL 200cc, FFFM, Pitocin and cytotec 600mcg via rectum. LAceration repaired without difficulty Baby and mom remains in recovery in stable condition LABOR SUMMARY EDC: 01/12/2018 00:00 No. Babies in Womb: 1 Attempted: No Labor Anesthesia: Epidural LABOR INFORMATION Reason for Induction: Not Applicable Onset of Labor: 01/16/2018 05:54 Complete Dilatation: 01/16/2018 09:05 Oxytocin: N/A Group B Beta Strep: negative Antibiotics # of Doses: 0 Steroids Given: None Reason Steroids Not Administered: Not Applicable MEMBRANES Membranes Rupture Method: Artificial Rupture of Membranes: 01/16/2018 01:00 Length of Rupture (hr): 9.95 Amniotic Fluid Color: Moderate Meconium Amniotic Fluid Amount: Small Amniotic Fluid Odor: Normal STAGES OF LABOR Stage 1 hr: 3 Stage 1 min: 11 Stage 2 hr: 1 Stage 2 min: 52 Stage 3 hr: 0 Stage 3 min: 4 Total Time in Labor hr: 5 Total Time in Labor min: 7 VAGINAL DELIVERY Episiotomy: None Laceration #1: Perineal Laceration Extension #1: Second Degree Laceration Repair: Yes Laceration Repair Note: repaired with 2-0 chromic Sponge Count Correct: N/A Sharps Count Correct: N/A CSECTION DELIVERY Primary Indication: N/A Secondary Indication: N/A CSection Incidence: N/A Labor: N/A Elective: N/A CSection Incision: N/A BABY A INFORMATION Infant Delivery Date/Time: 01/16/2018 10:57 Method of Delivery: Vaginal Born in Route : No : N/A Forceps: N/A Vacuum Extraction: N/A Shoulder Dystocia : No PRESENTATION/POSITION BABY A Presentation: Cephalic Cephalic Presentation: Vertex Vertex Position: Left Occipital Anterior Breech Presentation: N/A PLACENTA INFORMATION BABY A Placenta Delivery Time : 01/16/2018 11:01 Placenta Method of Delivery: Spontaneous Placenta Status: Delivered SCORES BABY A Heart Rate 1 min: >100 bpm Resp Effort 1 min: Good Cry Reflex Irritability 1 min: Cough or Sneeze or Pulls Away Muscle Tone 1 min: Active Motion Color 1 min: Body Obetz, Extremities Blue Resuscitation Effort 1 min: Tactile Stimulation SCORE 1 MIN: 9 Heart Rate 5 min: >100 bpm Resp Effort 5 min: Good Cry Reflex Irritability 5 min: Cough or Sneeze or Pulls Away Muscle Tone 5 min: Active Motion Color 5 min: Body Ob[place], Extremities Blue Resuscitation Effort 5 min: Tactile Stimulation SCORE 5 MIN: 9 INFANT INFORMATION BABY A Gestational Age at Delivery: 40.4 Gestational Status: Full Term- 39- 40.6 Weeks Infant Outcome : Liveborn Condition : Stable Sex: Male IDENTIFICATION BABY A Verification Date/Time: 01/16/2018 11:46 ID Band Number: [id number] Mother's Name Verified: Yes RN Verifying : CVicky Osorio, DVicky Bellavance WEIGHT/LENGTH BABY A Infant Birthweight (gm): 3770 Weight (lb): 8 Weight (oz): 5 Length (in): 21.50 Length (cm): 54.61 CORD INFORMATION BABY A No. Cord Vessels: 3 Nuchal Cord : Around Neck x2, tight Cord Blood Taken: Yes-For Eval (Mom's Blood Type - or O+) Suction: None ASSESSMENT BABY A Complications: None Physical Findings at Delivery: Within Normal Limits Infant Respirations: Appears Normal Skin to Skin: Yes Skin to Skin Time (min): 30 [employer]/ALS Called : No Infant Care By: D Leandromartinanereida [facility] Transferred To: Remains with Mother BABY B INFORMATION : N/A
--- NOTE | 2018-01-16 15:03 | Admission Physical ---
Datetime Report Generated by CPN: 01/16/2018 15:02 CURRENT ADMISSION Chief Complaint: Suspected Ruptured Membranes Indication for Induction: Not Applicable Indication for Induction: Term, Intrauterine Admit Plan: Initiate Labor Protocol ALLERGIES Medication Allergies: No Medication Allergies: No Known Allergies (01/15/2018) Medication Allergies: No Known Allergies (12/16/2017) Medication Allergies: No Known Allergies (12/11/2017) Medication Allergies: No Known Allergies (06/07/2017) Latex: No Latex Allergies Food Allergies: N/A Environmental Allergies: N/A OBSTETRICAL HISTORY EDC: 01/12/2018 00:00 : 2 Para: 0 Term: 0 : 0 SAB: 0 IAB: 1 Ectopic: 0 Livin Cesareans: 0 VBACs: 0 Multiple Births: 0 Gestational Diabetes: Yes Rh Sensitization: No Incompetent Cervix: No IQRA: No Infertility: No ART Treatment: No Uterine Anomaly: No IUGR: No Hx Previous C/S: No Macrosomia: No Hx Loss/Stillborn: No PIH: No Hx : No Placenta Previa/Abruption: No Depression/PP Depression: No PTL/PROM: No Post Hemorrhage: No Current Procedures: Ultrasound; NST Obstetrical History Comments: G1- EAB 2008 G2- current, GDM SEE RECORDS Alcohol: No Marijuana : No Cocaine: No Other Illicit Drugs: No Cigarettes: Current Everyday Smoker. 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: No Heart Disease: No Hosp/Surgery: No Autoimmune Disorder: No Anesthetic Complications: No Kidney Disease: No Abnormal Pap Smear: No Neuro/Epilepsy: No Psychiatric Disorders: No Other Medical Diseases: No Hepatitis/Liver Disease: No Significant Family History: No Varicosities/Phlebitis: No Trauma/Violence : No Thyroid Dysfunction: No Medical History Comments: GDM current INFECTIOUS HISTORY Gonorrhea: No Genital Herpes: No Chlamydia: No Tuberculosis: No Syphilis: No Hepatitis: No HIV/AIDS Exposure: No Rash or Viral Illness: No HPV: No PHYSICAL EXAM General: Normal HEENT: Normal Neurologic: Normal Thyroid: Normal Heart: Normal Lungs: Normal Breast: Deferred Back: Normal Abdomen: Normal Genitourinary Exam: Normal Extremities: Normal DTRs: Normal Pelvic Type: Adequate MEMBRANES Membranes: Ruptured Amniotic Fluid Color: Meconium, Heavy FETUS A EGA: 40.4 Monitoring: External US Decelerations: None PLANS FOR LABOR AND DELIVERY Labor and Delivery: None Pain Management: Medications; Epidural Feeding Preference: Formula Benefit of Breast Feed Discussed: Yes Circumcision: Yes INFORMED CONSENT Informed Consent Obtained: Vaginal Delivery Signature: with User ID: [email or web address]
[2018-01-16] MEDS: FERROUS SULFATE 325 MG TABLET PO SCH (18:17)
[2018-01-16] MEDS: DOCUSATE SODIUM 100 MG CAPSULE PO SCH (18:17)
[2018-01-16] MEDS ORDERED: FAMOTIDINE 20 MG TABLET PO SCH (22:00)
[2018-01-17] MEDS: IBUPROFEN 800 MG TABLET PO SCH ×3 (07:04→21:38)
[2018-01-17 08:32] LABS: HEMATOCRIT 27.7 % (36.0-47.0); HEMOGLOBIN 9.5 g/dL (12.0-15.5); MEAN CORPUSCULAR HGB CONC 34.4 g/dL (32.0-36.0); MEAN CORPUSCULAR VOLUME 90 fl (80-97); PLATELET COUNT 207 10^3/uL (150-450); RED BLOOD COUNT 3.07 10^6/uL (3.72-5.28); RED CELL DISTRIBUTION WIDTH 14.1 % (11.5-14.0); WHITE BLOOD COUNT 12.4 10^3/uL (4.0-10.5)
[2018-01-17] MEDS: PRENATAL VITAMIN W DHA CAPSULE PO SCH (09:40)
[2018-01-17] MEDS: FERROUS SULFATE 325 MG TABLET PO SCH ×2 (09:40→18:28)
[2018-01-17] MEDS: SENNOSIDES/DOCUSATE 8.6-50 MG 1 EACH TABLET PO SCH (09:40)
[2018-01-17] MEDS: DOCUSATE SODIUM 100 MG CAPSULE PO SCH ×2 (09:40→18:28)
--- NOTE | 2018-01-17 10:53 | PDOC PROGRESS REPORT ---
Subjective-OB Progress Note for:: 01/17/18 Physical Exam (OB) Vital Signs: Temp Pulse Resp BP Pulse Ox 98.4 F 63 14 91/53 L 100 01/17/18 08:13 01/17/18 08:13 01/17/18 08:13 01/17/18 08:13 01/17/18 08:13 Intake & Output 01/16/18 01/17/18 01/18/18 06:59 06:59 06:59 Weight 85.4 kg - PIH/Pre-Eclampsia Clonus: Negative - Lochia Lochia Amount: Small 10-25 ml Lochia Color: Rubra/Red - Abdomen Description: Soft, Round Hernia Present: No Bowel Sounds: Normoactive Flatus Presence: Present Stool: Yes Fundal Description: Firm, Midline Fundal Height: u/u - u/2 Objective-Diagnostic Laboratory: 01/17/18 07:55 01/17/18 07:55 WBC 12.4 H RBC 3.07 L Hgb 9.5 L Hct 27.7 L MCV 90 MCH 31.0 MCHC 34.4 RDW 14.1 H Plt Count 207
[2018-01-17] MEDS: ACETAMINOPHEN WITH CODEINE #3 TABLET PO PRN (14:59)
[2018-01-18] MEDS: ACETAMINOPHEN WITH CODEINE #3 TABLET PO PRN (04:29)
[2018-01-18] MEDS: IBUPROFEN 800 MG TABLET PO SCH (05:30)
[2018-01-18] MEDS: FERROUS SULFATE 325 MG TABLET PO SCH (09:55)
[2018-01-18] MEDS: DOCUSATE SODIUM 100 MG CAPSULE PO SCH (09:55)
[2018-01-18] MEDS: PRENATAL VITAMIN W DHA CAPSULE PO SCH (09:55)
[2018-01-18] MEDS: SENNOSIDES/DOCUSATE 8.6-50 MG 1 EACH TABLET PO SCH (09:55)
--- NOTE | 2018-01-18 11:36 | PDOC PROGRESS REPORT ---
Subjective-OB Progress Note for:: 01/18/18 Physical Exam (OB) Vital Signs: Temp Pulse Resp BP Pulse Ox 97.9 F 83 16 116/85 100 01/18/18 07:49 01/18/18 07:49 01/18/18 07:49 01/18/18 07:49 01/18/18 07:49 - PIH/Pre-Eclampsia DTR's: 1 + Clonus: Negative Headache: Absent Epigastric Pain: No Visual Changes: No - Lochia Lochia Amount: Small 10-25 ml Lochia Color: Rubra/Red - Abdomen Description: Soft, Round Hernia Present: No Bowel Sounds: Normoactive Flatus Presence: Present Stool: No Fundal Description: Firm, Midline Fundal Height: u/u - u/2 Objective-Diagnostic Laboratory: 01/17/18 07:55
--- NOTE | 2018-01-18 11:42 | PDOC DISCHARGE SUMMARY ---
Final Diagnosis Discharge Date: 01/18/18 - Final Diagnosis (1) Delivery normal Is this a current diagnosis for this admission?: Yes (2) GDM (gestational diabetes mellitus) Is this a current diagnosis for this admission?: Yes (3) Is this a current diagnosis for this admission?: Yes (4) Smoker Is this a current diagnosis for this admission?: Yes Discharge Data - Discharge Medication Prescriptions: Ferrous Sulfate [Feosol 325 mg Tablet] 325 mg PO BID #60 tablet Home Medications: 105/Iron/Folic AC/Dha [Prena1 True Combo Pack] 1 each PO DAILY #30 combo..pkg 06/07/17 Ferrous Sulfate [Feosol 325 mg Tablet] 325 mg PO BID #60 tablet 01/18/18 Gestational Age: 40.4 wks Reason(s) for Admission: Onset of Labor Procedures: Ultrasound Intrapartum Procedure(s): Spontaneous Vaginal Delivery Complication(s): Laceration-Perineal Laceration-Degree: 2nd - Data Baby 1 Male at 1 minute: 9 at 5 minutes: 9 Weight: 3.77 kg Home with Mother: Yes Complications: No - Diagnosis Test Laboratory: Temp Pulse Resp BP Pulse Ox 97.9 F 83 16 116/85 100 01/18/18 07:49 01/18/18 07:49 01/18/18 07:49 01/18/18 07:49 01/18/18 07:49 01/16/18 01/16/18 01/17/18 04:15 04:45 07:55 RBC 3.63 L 3.07 L Hgb 11.2 L 9.5 L Hct 33.1 L 27.7 L Urine Opiates Screen NEGATIVE - Discharge information/Instructions Discharge Activity: Activity As Tolerated, Balance Activity w/Rest, Pelvic Rest , Slowly Increase Activity, No tub bath Discharge Diet: Regular Disposition: HOME, SELF-CARE Follow up with: [facility] in: 4, Weeks
[2018-01-18 11:43] VITALS: BP 103/61
== END 2018-01-18 13:48 | disposition home or self-care (01) | DRG 775 ==
LOC: LC 03:57 → LR 04:30 → 2S 15:02
PROVIDERS: ADMIT Obstetrics & Gynecology Gynecology; ATTEND Obstetrics & Gynecology Gynecology
PROC: 10E0XZZ Delivery of Products of Conception, External Approach (ICD-10-PCS; principal; 2018-01-16)
PROC: 0KQM0ZZ Repair Perineum Muscle, Open Approach (ICD-10-PCS; 2018-01-16)
PROC: 10907ZC Drainage of Amniotic Fluid, Therapeutic from Products of Conception, Via Natural or Artificial Opening (ICD-10-PCS; 2018-01-16)
PROC: 4A1HXCZ Monitoring of Products of Conception, Cardiac Rate, External Approach (ICD-10-PCS; 2018-01-16)
PROC: 3E0234Z Introduction of Serum, Toxoid and Vaccine into Muscle, Percutaneous Approach (ICD-10-PCS; 2018-01-18)
DX: O24.429 Gestational diabetes mellitus in childbirth, unspecified control (principal); O70.1 Second degree perineal laceration during delivery; O99.334 Smoking (tobacco) complicating childbirth; F17.210 Nicotine dependence, cigarettes, uncomplicated; O77.0 Labor and delivery complicated by meconium in amniotic fluid; O69.1XX0 Labor and delivery complicated by cord around neck, with compression, not applicable or unspecified; Z23 Encounter for immunization; Z3A.40 40 weeks gestation of pregnancy; Z37.0 Single live birth
CPT/HCPCS: 36415; 80307; 81005; 84112; 85025; 85027; 86592; 86850; 86900; 86901; 90715; 94760; J2210; J2590; J3490

== ENCOUNTER 2018-01-27 18:54 | Emergency (ER) | payer MEDICAID ==
[2018-01-27 19:33] LABS: APPEARANCE,URINE SLIGHTLY-CLOUDY; BILIRUBIN,URINE NEGATIVE (NEGATIVE); COLOR,URINE YELLOW; GLUCOSE, URINE NEGATIVE (NEGATIVE); KETONES,URINE NEGATIVE (NEGATIVE); LEUKOCYTE ESTERASE,URINE LARGE (NEGATIVE); NITRITE,URINE NEGATIVE (NEGATIVE); PROTEIN,URINE NEGATIVE (NEGATIVE); URINE SPECIFIC GRAVITY 1.016; UROBILINOGEN,URINE NEGATIVE mg/dL (<2.0)
[2018-01-27] MEDS ORDERED: ACETAMINOPHEN 325 MG TABLET PO ONE (20:19)
--- NOTE | 2018-01-27 20:20 | ER Document Report ---
ED Medical Screen (RME) - General Chief Complaint: Flank Pain Stated Complaint: BACK PAIN Time Seen by Provider: 01/27/18 20:18 Notes: Patient gave 2 weeks ago. She states she now has right flank pain. She denies any urinary symptoms. She has no gastrointestinal symptoms. She denies any known injury or trauma. No rashes. TRAVEL OUTSIDE OF THE [place] IN LAST 30 DAYS: No - Related Data Allergies/Adverse Reactions: No Known Allergies Allergy (Verified 01/15/18 16:55) Past Medical History - Social History Frequency of alcohol use: None Drug Abuse: None Renal/ Medical History: Denies: Hx Peritoneal Dialysis - Immunizations Immunizations up to date: No Hx Diphtheria, Pertussis, Tetanus Vaccination: No History of Influenza Vaccine for 08/2017 - 01/2018 Season: Yes Physical Exam - Vital signs Vitals: Temp Pulse Resp BP Pulse Ox 97.5 F 79 20 107/68 100 01/27/18 19:01 01/27/18 19:01 01/27/18 19:01 01/27/18 19:01 01/27/18 19:01 Course - Vital Signs Vital signs: Temp Pulse Resp BP Pulse Ox 97.5 F 79 20 107/68 100 01/27/18 19:01 01/27/18 19:01 01/27/18 19:01 01/27/18 19:01 01/27/18 19:01 - Laboratory Laboratory results interpreted by me: 01/27/18 19:05 Urine Blood MODERATE H Ur Leukocyte Esterase LARGE H
--- NOTE | 2018-01-27 20:50 | RADIOLOGY REPORT (SQ) ---
EXAM DESCRIPTION: CHEST PA/LAT COMPLETED DATE/TIME: 01/27/2018 8:38 pm REASON FOR STUDY: right flank pain COMPARISON: None. EXAM PARAMETERS: NUMBER OF VIEWS: two views TECHNIQUE: Digital Frontal and Lateral radiographic views of the chest acquired. RADIATION DOSE: NA LIMITATIONS: none FINDINGS: LUNGS AND PLEURA: No opacities, masses or pneumothorax. No pleural effusion. MEDIASTINUM AND HILAR STRUCTURES: No masses or contour abnormalities. HEART AND VASCULAR STRUCTURES: Heart normal size. No evidence for failure. BONES: No acute findings. HARDWARE: None in the chest. OTHER: No other significant finding. IMPRESSION: NO SIGNIFICANT RADIOGRAPHIC FINDING IN THE CHEST. TECHNICAL DOCUMENTATION: JOB ID: [id number] [employer]- All Rights Reserved Reading location - IP/workstation name: [email or web address]
[2018-01-27 21:01] LABS: ABSOLUTE BASOPHILS # (AUTO) 0.1 10^3/uL (0.0-0.2); ABSOLUTE EOSINOPHILS # (AUTO) 0.4 10^3/uL (0.0-0.6); ABSOLUTE LYMPHOCYTES (AUTO) 2.1 10^3/uL (0.5-4.7); ABSOLUTE MONOCYTES (AUTO) 0.6 10^3/uL (0.1-1.4); ABSOLUTE NEUT (AUTO) 14.1 10^3/uL (1.7-8.2); BASOPHILS % (AUTO) 0.4 % (0-2); EOSINOPHILS % (AUTO) 2.1 % (0-6); HEMATOCRIT 38.6 % (36.0-47.0); HEMOGLOBIN 12.9 g/dL (12.0-15.5); MEAN CORPUSCULAR HEMOGLOBIN 30.4 pg (27.0-33.4); MEAN CORPUSCULAR HGB CONC 33.3 g/dL (32.0-36.0); MEAN CORPUSCULAR VOLUME 91 fl (80-97); MONOCYTES % (AUTO) 3.3 % (3-13); PLATELET COUNT 462 10^3/uL (150-450); RED BLOOD COUNT 4.23 10^6/uL (3.72-5.28); RED CELL DISTRIBUTION WIDTH 13.6 % (11.5-14.0); SEGMENTED NEUTROPHILS % (AUTO) 82.2 % (42-78); TOTAL CELLS COUNTED % (AUTO) 100 %; WHITE BLOOD COUNT 17.2 10^3/uL (4.0-10.5)
[2018-01-27 21:15] LABS: APPEARANCE,URINE SLIGHTLY-CLOUDY; BILIRUBIN,URINE NEGATIVE (NEGATIVE); GLUCOSE, URINE NEGATIVE (NEGATIVE); KETONES,URINE NEGATIVE (NEGATIVE); LEUKOCYTE ESTERASE,URINE MODERATE (NEGATIVE); NITRITE,URINE NEGATIVE (NEGATIVE); PROTEIN,URINE 30 mg/dL (NEGATIVE); URINE SPECIFIC GRAVITY 1.031
[2018-01-27 21:16] LABS: COLOR,URINE YELLOW
[2018-01-27 21:24] LABS: ALANINE AMINOTRANSFERASE 23 U/L (9-52); ALBUMIN 4.3 g/dL (3.5-5.0); ALKALINE PHOSPHATASE 70 U/L (38-126); ANION GAP 12 (5-19); ASPARTATE AMINO TRANSFERASE 16 U/L (14-36); BILIRUBIN,DIRECT 0.2 mg/dL (0.0-0.4); BILIRUBIN,TOTAL 0.3 mg/dL (0.2-1.3); BLOOD UREA NITROGEN 14 mg/dL (7-20); CALCIUM 10.3 mg/dL (8.4-10.2); CARBON DIOXIDE 28 mmol/L (22-30); CHLORIDE 103 mmol/L (98-107); GLUCOSE 69 mg/dL (75-110); POTASSIUM 4.1 mmol/L (3.6-5.0); SODIUM 142.7 mmol/L (137-145); TOTAL PROTEIN 7.3 g/dL (6.3-8.2)
--- NOTE | 2018-01-27 23:10 | ER Document Report ---
ED General - General Chief Complaint: Flank Pain Stated Complaint: BACK PAIN Time Seen by Provider: 01/27/18 20:18 Mode of Arrival: Ambulatory Information source: Patient TRAVEL OUTSIDE OF THE [place] IN LAST 30 DAYS: No - HPI Notes: Patient is a otherwise healthy 28-year-old female who is 2 weeks status post presents emergency department with report of right flank pain with some radiation to the right lateral aspect of the abdomen and right upper quadrant region that has been intermittent since earlier today. She denies any right lower quadrant pain she reports no significant vaginal discharge, stating that she is still clearing up from her post minimal bleeding. Patient reports no dysuria. The patient states she thinks that she slept on her right side causing the pain. She denies any difficulty breathing or shortness of breath. She reports no anterior chest pain. The patient denies any fever or chills. No nausea or vomiting. - Related Data Allergies/Adverse Reactions: No Known Allergies Allergy (Verified 01/15/18 16:55) Past Medical History - General Information source: Patient - Social History Smoking Status: Current Every Day Smoker Frequency of alcohol use: None Drug Abuse: None Lives with: Family Family History: CAD, CVA, DM, Hyperlipidemia, Hypertension, Malignancy, Thyroid Disfunction, Other - Mother has asthma Patient has suicidal ideation: No Patient has homicidal ideation: No Renal/ Medical History: Denies: Hx Peritoneal Dialysis - Immunizations Immunizations up to date: No Hx Diphtheria, Pertussis, Tetanus Vaccination: No Review of Systems - Review of Systems Notes: REVIEW OF SYSTEMS: CONSTITUTIONAL : Denies fever, chills, or sweats. Denies recent illness. EENT: Denies eye, ear, throat, or mouth pain or symptoms. Denies nasal or sinus congestion or discharge. Denies throat, tongue, or mouth swelling or difficulty swallowing. CARDIOVASCULAR: Denies chest pain. Denies palpitations or racing or irregular heart beat. Denies ankle edema. RESPIRATORY: Denies cough, cold, or chest congestion. Denies shortness of breath, difficulty breathing, or wheezing. GASTROINTESTINAL: Denies abdominal pain or distention. Denies nausea, vomiting , or diarrhea. Denies blood in vomitus, stools, or per rectum. Denies black, tarry stools. Denies constipation. GENITOURINARY: Denies difficulty urinating, painful urination, burning, frequency, blood in urine, or discharge. FEMALE GENITOURINARY: Denies vaginal bleeding, heavy or abnormal periods, irregular periods. Denies vaginal discharge or odor. MUSCULOSKELETAL: Denies neck pain or stiffness. Denies joint pain or swelling. Patient reports right lower back pain and right lateral lower rib cage pain. No leg pain or swelling. SKIN: Denies rash, lesions or sores. HEMATOLOGIC : Denies easy bruising or bleeding. LYMPHATIC: Denies swollen, enlarged glands. NEUROLOGICAL: Denies confusion or altered mental status. Denies passing out or loss of consciousness. Denies dizziness or lightheadedness. Denies headache. Denies weakness or paralysis or loss of use of either side. Denies problems with gait or speech. Denies sensory loss, numbness, or tingling. Denies seizures. PSYCHIATRIC: Denies anxiety or stress. Denies depression, suicidal ideation, or homicidal ideation. ALL OTHER SYSTEMS REVIEWED AND NEGATIVE. Dictation was performed using [employer] voice recognition software Physical Exam - Vital signs Vitals: Temp Pulse Resp BP Pulse Ox 97.5 F 79 20 107/68 100 01/27/18 19:01 01/27/18 19:01 01/27/18 19:01 01/27/18 19:01 01/27/18 19:01 - Notes Notes: PHYSICAL EXAMINATION: GENERAL: Well-appearing, well-nourished and in no acute distress. HEAD: Atraumatic, normocephalic. EYES: Pupils equal round and reactive to light, extraocular movements intact, conjunctiva are normal. ENT: Nares patent, oropharynx clear without exudates. Moist mucous membranes. NECK: Normal range of motion, supple without lymphadenopathy LUNGS: Breath sounds clear to auscultation bilaterally and equal. No wheezes rales or rhonchi HEART: Regular rate and rhythm without murmurs ABDOMEN: Soft, nondistended abdomen. No guarding, no rebound. No masses appreciated. Tender through the right upper quadrant extending around to the right lateral lower rib cage region into the right CVA region. No crepitance or bony deformity or erythema. No pain to the lower abdominal region. Female : deferred Musculoskeletal: Normal range of motion, no pitting or edema. No cyanosis. Negative Homans. No palpable cord. No edema. NEUROLOGICAL: Cranial nerves grossly intact. Normal speech, normal gait. Normal sensory, motor exams PSYCH: Normal mood, normal affect. SKIN: Warm, Dry, normal turgor, no rashes or lesions noted. Course - Re-evaluation Re-evalutation: 01/27/18 23:10 Urinalysis showed a UTI. Urine culture is ordered. 01/27/18 23:14 No evidence for sepsis or significant anemia or renal dysfunction. No evidence for eclamptic state with normal blood pressure. No clinical suggestion for pulmonary embolus. No evidence for pneumonia or pneumothorax. No gross hepatitis. I question a musculoskeletal etiology given the location of the pain along the lower costal margin. 01/28/18 01:31 No evidence for acute cholecystitis based upon ultrasound findings. Likewise patient has normal liver enzymes. There is evidence for pyelonephritis, and patient is given Bactrim after urine culture. There is no evidence for renal insufficiency or anemia. - Vital Signs Vital signs: Temp Pulse Resp BP Pulse Ox 97.5 F 79 20 107/68 100 01/27/18 19:01 01/27/18 19:01 01/27/18 19:01 01/27/18 19:01 01/27/18 19:01 - Laboratory Result Diagrams: 01/27/18 20:35 01/27/18 20:35 Laboratory results interpreted by me: 01/27/18 01/27/18 01/27/18 19:05 20:35 20:35 WBC 17.2 H Plt Count 462 H Seg Neutrophils % 82.2 H Lymphocytes % 12.0 L Absolute Neutrophils 14.1 H Glucose 69 L Calcium 10.3 H Urine Protein Urine Blood MODERATE H Urine Urobilinogen Ur Leukocyte Esterase LARGE H Urine Ascorbic Acid 01/27/18 20:35 WBC Plt Count Seg Neutrophils % Lymphocytes % Absolute Neutrophils Glucose Calcium Urine Protein 30 H Urine Blood MODERATE H Urine Urobilinogen 2.0 H Ur Leukocyte Esterase MODERATE H Urine Ascorbic Acid 20 H Discharge - Discharge Clinical Impression: Pyelonephritis Gallstone Qualifiers: Cholecystitis presence: without cholecystitis Biliary obstruction: without biliary obstruction Qualified Code(s): K80.20 - Calculus of gallbladder without cholecystitis without obstruction Condition: Stable Disposition: HOME, SELF-CARE Instructions: Gallbladder Disease ([facility]), Low-Fat Diet ([facility]), Pyelonephritis ( [facility]), Trimethoprim-Sulfa ([facility]) Additional Instructions: Drink plenty of fluids. Return to the emergency department in case of fever or severe pain or vomiting. If you continue to have pain in the right upper abdomen, then you may need to have your gallbladder removed. Follow-up with surgery. Prescriptions: Ibuprofen 800 mg PO Q8HP PRN #30 tablet PRN Reason: Sulfamethoxazole/Trimethoprim [Bactrim Ds Tablet] 1 each PO BID #20 tablet Referrals: SHAHRZAD STONE MD [ACTIVE STAFF] - Follow up as needed
--- NOTE | 2018-01-28 00:59 | RADIOLOGY REPORT (SQ) ---
EXAM DESCRIPTION: U/S ABDOMEN LIMITED W/O DOP CLINICAL HISTORY: 28 years, Female, RUQ pain, 2 weeks post- COMPARISON: None. LIMITATIONS: None. FINDINGS: Nondistended gallbladder with a 1.2 cm gallstone, 0.3 cm thick gallbladder wall, negative sonographic Smith's test, no pericholecystic fluid, 0.4 cm diameter common bile duct, no intra or extrahepatic ductal dilation, pancreas, partially obscured aorta, liver, and 12 cm right kidney appear otherwise unremarkable. No ascites. IMPRESSION: No acute findings. Cholelithiasis.
[2018-01-28] MEDS ORDERED: SULFAMETHOXAZOLE/TRIMETHOPRIM 800-160 MG TABLET PO ONE (01:25)
[2018-01-28 01:27] VITALS: BP 102/59
[2018-01-28] MEDS ORDERED: IBUPROFEN 800 MG TABLET PO ONE (01:27)
== END 2018-01-28 02:00 | disposition home or self-care (01) ==
LOC: ER 18:54
DX: O86.21 Infection of kidney following delivery (principal); O99.63 Diseases of the digestive system complicating the puerperium; K81.9 Cholecystitis, unspecified; O99.335 Smoking (tobacco) complicating the puerperium; R10.9 Unspecified abdominal pain; M54.9 Dorsalgia, unspecified; F17.200 Nicotine dependence, unspecified, uncomplicated
CPT/HCPCS: 99284; 36415; 87086; 85025; 80053; 81001; 71046; 76705; J3490 ×2

== ENCOUNTER 2019-05-28 03:54 | Outpatient (CLI) | payer MEDICAID ==
[2019-05-28 04:43] LABS: APPEARANCE,URINE CLOUDY; BILIRUBIN,URINE NEGATIVE (NEGATIVE); COLOR,URINE YELLOW; GLUCOSE, URINE NEGATIVE (NEGATIVE); KETONES,URINE NEGATIVE (NEGATIVE); LEUKOCYTE ESTERASE,URINE LARGE (NEGATIVE); NITRITE,URINE NEGATIVE (NEGATIVE); PROTEIN,URINE NEGATIVE (NEGATIVE); URINE SPECIFIC GRAVITY 1.017; UROBILINOGEN,URINE NEGATIVE mg/dL (<2.0)
[2019-05-28 04:56] LABS: URINE AMPHETAMINES SCREEN NEGATIVE; URINE BARBITURATES SCREEN NEGATIVE; URINE BENZODIAZEPINES SCREEN NEGATIVE; URINE COCAINE SCREEN NEGATIVE; URINE MARIJUANA (THC) SCREEN NEGATIVE; URINE METHADONE SCREEN NEGATIVE; URINE PHENCYCLIDINE SCREEN NEGATIVE
== END 2019-05-28 05:17 | disposition home or self-care (01) ==
LOC: LC 03:54
PROVIDERS: ATTEND Student in an Organized Health Care Education/Training Program
PROC: 4A1HXCZ Monitoring of Products of Conception, Cardiac Rate, External Approach (ICD-10-PCS; principal; 2019-05-28)
DX: Z36.89 Encounter for other specified antenatal screening (principal)
CPT/HCPCS: 80307; 81001

== ENCOUNTER 2019-05-28 05:11 | Emergency (ER) | payer MEDICAID ==
--- NOTE | 2019-05-28 05:50 | ER Document Report ---
ED Medical Screen (RME) - General Chief Complaint: Abdominal Pain Stated Complaint: ABDOMINAL PAIN Time Seen by Provider: 05/28/19 05:35 Primary Care Provider: BRAULIO NUNES MD [Primary Care Provider] - Follow up as needed Notes: 29-year-old female at approximately 29 weeks gestation, chief complaint of abdominal pain since yesterday, pain is in the upper abdomen radiating to the right upper quadrant (she points). Denies vomiting or fever. Has been upstairs to [employer] and was cleared and sent down to the ER. She does report a history of gallstones. Denies vaginal bleeding, is feeling baby moving. Reports symptoms are a lot better now than earlier. TRAVEL OUTSIDE OF THE [place] IN LAST 30 DAYS: No - Related Data Allergies/Adverse Reactions: No Known Allergies Allergy (Verified 05/28/19 05:18) Past Medical History Renal/ Medical History: Denies: Hx Peritoneal Dialysis - Immunizations Immunizations up to date: No Hx Diphtheria, Pertussis, Tetanus Vaccination: No History of Influenza Vaccine for 08/2017 - 01/2018 Season: Yes Physical Exam - Vital signs Vitals: Temp Pulse Resp BP Pulse Ox 97.6 F 70 20 105/53 L 98 05/28/19 05:17 05/28/19 05:17 05/28/19 05:17 05/28/19 05:17 05/28/19 05:17 - Abdominal Tenderness: Tender - Tenderness but not guarding in the right upper quadrant and epigastric areas. Gravid abdomen. Course - Re-evaluation Re-evalutation: I have greeted and performed a rapid initial assessment of this patient. A comprehensive ED assessment and evaluation of the patient, analysis of test results and completion of the medical decision making process will be conducted by additional ED providers. - Vital Signs Vital signs: Temp Pulse Resp BP Pulse Ox 97.6 F 70 20 105/53 L 98 05/28/19 05:17 05/28/19 05:17 05/28/19 05:17 05/28/19 05:17 05/28/19 05:17 Doctor's Discharge - Discharge Referrals: BRAULIO NUNES MD [Primary Care Provider] - Follow up as needed
[2019-05-28 06:22] LABS: ABSOLUTE BASOPHILS # (AUTO) 0.1 10^3/uL (0.0-0.2); ABSOLUTE EOSINOPHILS # (AUTO) 0.2 10^3/uL (0.0-0.6); ABSOLUTE MONOCYTES (AUTO) 0.5 10^3/uL (0.1-1.4); ABSOLUTE NEUT (AUTO) 11.3 10^3/uL (1.7-8.2); BASOPHILS % (AUTO) 0.9 % (0-2); EOSINOPHILS % (AUTO) 1.7 % (0-6); HEMATOCRIT 34.6 % (36.0-47.0); HEMOGLOBIN 11.5 g/dL (12.0-15.5); LYMPHOCYTES % (AUTO) 14.1 % (13-45); MEAN CORPUSCULAR HEMOGLOBIN 30.2 pg (27.0-33.4); MEAN CORPUSCULAR HGB CONC 33.2 g/dL (32.0-36.0); MEAN CORPUSCULAR VOLUME 91 fl (80-97); MONOCYTES % (AUTO) 3.5 % (3-13); PLATELET COUNT 245 10^3/uL (150-450); RED CELL DISTRIBUTION WIDTH 13.8 % (11.5-14.0); SEGMENTED NEUTROPHILS % (AUTO) 79.8 % (42-78); TOTAL CELLS COUNTED % (AUTO) 100 %; WHITE BLOOD COUNT 14.1 10^3/uL (4.0-10.5)
--- NOTE | 2019-05-28 06:36 | RADIOLOGY REPORT (SQ) ---
CLINICAL HISTORY: RUQ pain COMPARISON: None. TECHNIQUE: US ABDOMEN LIMITED on 05/28/2019 5:39 AM CDT FINDINGS: Liver is normal in echotexture. Portal vein is patent. Gallbladder contains several gallstones without wall thickening or pericholecystic fluid. Common bile duct measures 12.1 cm without hydronephrosis. Intrauterine fetuses heart rate of 147 beats per minute. IMPRESSION: No significant abnormalities.
[2019-05-28 06:45] LABS: ALANINE AMINOTRANSFERASE 15 U/L (9-52); ALBUMIN 3.7 g/dL (3.5-5.0); ALKALINE PHOSPHATASE 71 U/L (38-126); ANION GAP 8 (5-19); ASPARTATE AMINO TRANSFERASE 28 U/L (14-36); BILIRUBIN,DIRECT 0.3 mg/dL (0.0-0.4); BILIRUBIN,TOTAL 0.3 mg/dL (0.2-1.3); BLOOD UREA NITROGEN 7 mg/dL (7-20); CALCIUM 9.1 mg/dL (8.4-10.2); CARBON DIOXIDE 21 mmol/L (22-30); CHLORIDE 108 mmol/L (98-107); GLUCOSE 87 mg/dL (75-110); LIPASE 146.8 U/L (23-300); TOTAL PROTEIN 6.7 g/dL (6.3-8.2)
--- NOTE | 2019-05-28 06:55 | ER Document Report ---
ED General - General Chief Complaint: Abdominal Pain Stated Complaint: ABDOMINAL PAIN Time Seen by Provider: 05/28/19 05:35 Primary Care Provider: BRAULIO NUNES MD [ACTIVE STAFF] - Follow up in 3-5 days ABIGAIL TAVAREZ MD [ACTIVE STAFF] - Follow up in 1 month Mode of Arrival: Ambulatory Information source: Patient, [facility] Records Notes: 29-year-old female at 29 weeks gestation presents with epigastric and right upper quadrant abdominal pain that started last night. Patient states the pain was burning, sharp and radiated to her right shoulder. Patient had no as sociated nausea, vomiting, diarrhea, lower abdominal pain, vaginal bleeding, dysuria. She denies prior similar symptoms. She was seen by OB and cleared for ER evaluation. Patient states she has had an uneventful so far. Currently she states her pain has resolved. TRAVEL OUTSIDE OF THE [place] IN LAST 30 DAYS: No - HPI Onset: Yesterday Onset/Duration: Sudden Quality of pain: Burning, Sharp Severity: Moderate Associated symptoms: denies: Chest pain, Chills, Fever, Nausea, Vomiting, Shortness of breath Exacerbated by: Denies Relieved by: Denies Similar symptoms previously: No Recently seen / treated by doctor: No - Related Data Allergies/Adverse Reactions: No Known Allergies Allergy (Verified 05/28/19 05:18) Past Medical History - General Information source: Patient - Social History Smoking Status: Unknown if Ever Smoked Chew tobacco use (# tins/day): No Frequency of alcohol use: None Drug Abuse: None Lives with: Family, Spouse/Significant other Family History: CAD, CVA, DM, Hyperlipidemia, Hypertension, Malignancy, Thyroid Disfunction, Other - Mother has asthma Patient has suicidal ideation: No Patient has homicidal ideation: No - Medical History Medical History: Other - Gestational diabetes Renal/ Medical History: Denies: Hx Peritoneal Dialysis - Immunizations Immunizations up to date: No Hx Diphtheria, Pertussis, Tetanus Vaccination: No Review of Systems - Review of Systems Notes: REVIEW OF SYSTEMS: CONSTITUTIONAL : Denies fever, chills, or sweats. Denies recent illness. D enies weight loss, recent hospitalizations. EENT: Denies visual changes, eye pain. Denies sore throat, oral lesions, difficulty swallowing. CARDIOVASCULAR: Denies chest pain. Denies palpitations. Denies lower extremity edema. RESPIRATORY: Denies cough. Denies shortness of breath, wheezing. GASTROINTESTINAL: Denies abdominal distention. Denies nausea, vomiting, or diarrhea. Denies blood in vomitus, stools, or per rectum. Denies black, tarry stools. Denies constipation. GENITOURINARY: Denies difficulty urinating, painful urination, frequency, blood in urine, or vaginal discharge. MUSCULOSKELETAL: Denies back or neck pain or stiffness. Denies joint pain or swelling. SKIN: Denies rash, lesions or sores. HEMATOLOGIC : Denies easy bruising or bleeding. LYMPHATIC: Denies swollen glands. NEUROLOGICAL: Denies confusion or altered mental status. Denies loss of consciousness. Denies dizziness or lightheadedness. Denies headache. Denies weakness or paralysis. Denies problems difficulty with ambulation, slurred speech. Denies sensory loss, numbness, or tingling. Denies seizures. PSYCHIATRIC: Denies anxiety or stress. Denies depression, suicidal ideation, or homicidal ideation. Denies visual or auditory hallucinations. Physical Exam - Vital signs Vitals: Temp Pulse Resp BP Pulse Ox 97.6 F 70 20 105/53 L 98 05/28/19 05:17 05/28/19 05:17 05/28/19 05:17 05/28/19 05:05/28/19 05:17 - Notes Notes: PHYSICAL EXAMINATION: GENERAL: Well-appearing, well-nourished and in no acute distress. HEAD: Atraumatic, normocephalic. EYES: Pupils equal round and reactive to light, extraocular movements intact, conjunctiva are normal. ENT: Nares patent, oropharynx clear without exudates. Moist mucous membranes. NECK: Normal range of motion, supple without lymphadenopathy LUNGS: Breath sounds clear to auscultation bilaterally and equal. No wheezes rales or rhonchi. HEART: Regular rate and rhythm without murmurs ABDOMEN: gravid, nontender, nondistended abdomen. No guarding, no rebound. No masses appreciated. Female : deferred Musculoskeletal: Normal range of motion, no pitting or edema. No cyanosis. NEUROLOGICAL: Cranial nerves grossly intact. Normal speech, normal gait. Normal sensory, motor exams PSYCH: Normal mood, normal affect. SKIN: Warm, Dry, normal turgor, no rashes or lesions noted. Course - Re-evaluation Re-evalutation: Laboratory 05/28/19 05/28/19 06:05 06:05 WBC 14.1 H RBC 3.80 Hgb 11.5 L Hct 34.6 L MCV 91 MCH 30.2 MCHC 33.2 RDW 13.8 Plt Count 245 Seg Neutrophils % 79.8 H Lymphocytes % 14.1 Monocytes % 3.5 Eosinophils % 1.7 Basophils % 0.9 Absolute Neutrophils 11.3 H Absolute Lymphocytes 2.0 Absolute Monocytes 0.5 Absolute Eosinophils 0.2 Absolute Basophils 0.1 Sodium 137.0 Potassium 4.0 Chloride 108 H Carbon Dioxide 21 L Anion Gap 8 BUN 7 Creatinine 0.30 L Est GFR ( Amer) > 60 Est GFR (Non-Af Amer) > 60 Glucose 87 Calcium 9.1 Total Bilirubin 0.3 Direct Bilirubin 0.3 Neonat Total Bilirubin Not Reportable Neonat Direct Bilirubin Not Reportable Neonat Indirect Bili Not Reportable AST 28 ALT 15 Alkaline Phosphatase 71 Total Protein 6.7 Albumin 3.7 Lipase 146.8 Abdomen Ultrasound 05/28/19 05:39 IMPRESSION: No significant abnormalities. Temp Pulse Resp BP Pulse Ox 97.6 F 70 20 105/53 L 98 05/28/19 05:17 05/28/19 05:17 05/28/19 05:17 05/28/19 05:17 05/28/19 05:17 05/28/19 07:32 Patient presents clinical history and exam most consistent with symptomatic cholelithiasis. Patient has had progressive worsening of right upper quadrant pain worsened by eating but has been able to tolerate some oral intake. Vitals at time of arrival and on multiple reassessments remain non-concerning. Laboratories do not demonstrate a significant leukocytosis, LFT derangements, elevated bilirubin, alkaline phosphatase, or an elevated lipase. A right upper quadrant ultrasound does not demonstrate evidence of acute cholecystitis. Patient is able to tolerate oral intake.At this time will discharge with return precautions and follow-up recommendations. Verbal discharge instructions given a the bedside and opportunity for questions given. Medication warnings reviewed. Patient is in agreement with this plan and has verbalized understanding of retur n precautions and the need for primary care follow-up in the next 24-72 hours. 05/28/19 07:32 05/28/19 13:19 Patient was evaluated and treated as appropriate for the patient's presenting symptoms and complaint, with consideration of any critical or life threatening conditions that may be associated with their obtained history and exam as noted above. All results were discussed with patient. Patient provided the opportunity to ask questions, and express concerns. Patient was educated on treatments based on their presumed diagnosis as noted above. At this time we will discharge the patient with return precautions and follow-up recommendations. Verbal discharge instructions given a the bedside. Medication warnings reviewed. Patient is in agreement with this plan and has verbalized understanding of return precautions. After careful consideration I feel that that patient can be safely discharged from the emergency department, they were advised to followup with a primary care physician in 2-3 days. Dictation on this chart was performed using voice recognition software and may result in unintended grammatical, spelling, syntax or errors. - Vital Signs Vital signs: Temp Pulse Resp BP Pulse Ox 97.9 F 84 17 97/58 L 99 05/28/19 08:03 05/28/19 08:03 05/28/19 08:03 05/28/19 08:03 05/28/19 08:03 - Laboratory Result Diagrams: 05/28/19 06:05 05/28/19 06:05 Laboratory results interpreted by me: 05/28/19 05/28/19 06:05 06:05 WBC 14.1 H Hgb 11.5 L Hct 34.6 L Seg Neutrophils % 79.8 H Absolute Neutrophils 11.3 H Chloride 108 H Carbon Dioxide 21 L Creatinine 0.30 L - Diagnostic Test Radiology reviewed: Image reviewed, Reports reviewed Discharge - Discharge Clinical Impression: Biliary colic Cholelithiasis Qualifiers: Cholelithiasis location: gallbladder Cholecystitis presence: without cholecystitis Biliary obstruction: without biliary obstruction Qualified Code(s): K80.20 - Calculus of gallbladder without cholecystitis without obstruction Qualifiers: Weeks of gestation: 29 weeks Qualified Code(s): Z3A.29 - 29 weeks gestation of Condition: Good Disposition: HOME, SELF-CARE Instructions: Gallbladder Disease ([facility]) Additional Instructions: Your ultrasound and history is most consistent with symptomatic cholelithiasis. This means that you have stones in your gallbladder that are causing pain when you eat fatty foods. You will likely need to have your gallbladder out in the coming weeks to prevent further pain. The best thing you can do at this time is to avoid fat-containing foods which will trigger your symptoms. Please contact the general surgeon listed in your discharge paperwork at your earliest ability for consultation regarding removal of your gallbladder. Please return to the emergency department if you develop persistent pain in your abdomen that will not go away, persistent vomiting, fever greater than 100.4F, pass out, or have any other symptoms that are concerning to yo Forms: Smoking Cessation Education Referrals: BRAULIO NUNES MD [ACTIVE STAFF] - Follow up in 3-5 days ABIGAIL TAVAREZ MD [ACTIVE STAFF] - Follow up in 1 month
[2019-05-28] MEDS ORDERED: FAMOTIDINE INJ/PF 20 MG/2 ML SDV IV ONE (07:32)
[2019-05-28 08:04] VITALS: BP 97/58
== END 2019-05-28 08:04 | disposition home or self-care (01) ==
LOC: ER 05:11
DX: O99.613 Diseases of the digestive system complicating pregnancy, third trimester (principal); K80.20 Calculus of gallbladder without cholecystitis without obstruction; O26.893 Other specified pregnancy related conditions, third trimester; R10.11 Right upper quadrant pain; R10.13 Epigastric pain; Z3A.29 29 weeks gestation of pregnancy
CPT/HCPCS: 99284; 96374; 36415; 83690; 85025; 80053; 76705; S0028

== ENCOUNTER 2019-08-12 10:49 | Inpatient (IN) | payer MEDICAID ==
[2019-08-12 11:31] LABS: APPEARANCE,URINE SLIGHTLY-CLOUDY; BILIRUBIN,URINE NEGATIVE (NEGATIVE); COLOR,URINE YELLOW; GLUCOSE, URINE NEGATIVE (NEGATIVE); KETONES,URINE NEGATIVE (NEGATIVE); LEUKOCYTE ESTERASE,URINE NEGATIVE (NEGATIVE); NITRITE,URINE NEGATIVE (NEGATIVE); PROTEIN,URINE NEGATIVE (NEGATIVE); URINE SPECIFIC GRAVITY 1.016; UROBILINOGEN,URINE NEGATIVE mg/dL (<2.0)
[2019-08-12 11:52] LABS: URINE AMPHETAMINES SCREEN NEGATIVE; URINE BARBITURATES SCREEN NEGATIVE; URINE BENZODIAZEPINES SCREEN NEGATIVE; URINE COCAINE SCREEN NEGATIVE; URINE MARIJUANA (THC) SCREEN NEGATIVE; URINE METHADONE SCREEN NEGATIVE; URINE PHENCYCLIDINE SCREEN NEGATIVE
[2019-08-12] MEDS ORDERED: OXYTOCIN 10 UNIT/ML VIAL ONE (12:38)
[2019-08-12] MEDS ORDERED: LIDOCAINE 1% INJ-PF (10 MG/ML) 30 ML SDV ONE (12:38)
[2019-08-12] MEDS ORDERED: MISOPROSTOL 0.2 MG TABLET ONE (12:38)
[2019-08-12] MEDS ORDERED: OXYTOCIN/NORMAL SALINE 20 UNIT/1,000 ML RTUINJ ONE (12:38)
--- NOTE | 2019-08-12 13:07 | Admission Physical ---
Datetime Report Generated by CPN: 08/12/2019 13:06 CURRENT ADMISSION Chief Complaint: Uterine Contractions Indication for Induction: Not Applicable Admit Impression : Term, Intrauterine ; Active Labor; Intact Membranes Admit Plan: Admit to Unit; Initiate Labor Protocol ALLERGIES Medication Allergies: No Medication Allergies: No Known Allergies (08/12/2019) Latex: No Latex Allergies Food Allergies: no Environmental Allergies: no OBSTETRICAL HISTORY EDC: 08/09/2019 00:00 : 3 Para: 1 Term: 1 : 0 SAB: 0 IAB: 1 Livin Gestational Diabetes: No Rh Sensitization: No Incompetent Cervix: No IQRA: No Infertility: No ART Treatment: No Uterine Anomaly: No IUGR: No Hx Previous C/S: No Macrosomia: No Hx Loss/Stillborn: No PIH: No Hx : No Placenta Previa/Abruption: No Depression/PP Depression: No PTL/PROM: No Post Hemorrhage: No Current Procedures: Ultrasound; NST Obstetrical History Comments: 2007 - EAB 2017 - , Boy 40.4 weeks SEE RECORDS Alcohol: No Cigarettes: Never Smoker. 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 Heart Disease: No Hosp/Surgery: No Autoimmune Disorder: No Anesthetic Complications: No Kidney Disease: No Abnormal Pap Smear: Yes Neuro/Epilepsy: No Psychiatric Disorders: No Other Medical Diseases: No Hepatitis/Liver Disease: No Significant Family History: No Varicosities/Phlebitis: No Trauma/Violence : No Thyroid Dysfunction: No Medical History Comments: HPV pap INFECTIOUS HISTORY Gonorrhea: No Genital Herpes: No Chlamydia: No Tuberculosis: No Syphilis: No Hepatitis: No HIV/AIDS Exposure: No Rash or Viral Illness: No HPV: Yes PHYSICAL EXAM General: Normal HEENT: Normal Neurologic: Normal Thyroid: Normal Heart: Normal Lungs: Normal Breast: Normal Back: Normal Abdomen: Normal Genitourinary Exam: Normal Extremities: Normal DTRs: Normal Pelvic Type: Adequate Vital Signs: Reviewed; Within Normal Limits VAGINAL EXAM Dilatation: 4-5 Effacement: 70 Station: -2 Contraction Comments: irregular MEMBRANES Membranes: Intact FETUS A EGA: 40.3 Monitoring: External US FHR- Baseline: 120s Variability: Moderate 6-25bpm Accelerations: 15X15 Decelerations: None FHR Category: Category I Admit Comment: presents to L_D c/o contractions. She reports good movement. She is GBS Neg. PLANS FOR LABOR AND DELIVERY Pain Management: Epidural Benefit of Breast Feed Discussed: Yes INFORMED CONSENT Signature: with User ID: [email or web address]
[2019-08-12] MEDS ORDERED: DIBUCAINE 1% OINTMENT 56 GM TP PRN (13:11)
[2019-08-12] MEDS ORDERED: ZOLPIDEM TARTRATE 5 MG TABLET PO PRN (13:11)
[2019-08-12] MEDS ORDERED: OXYTOCIN/NORMAL SALINE 20 UNIT/1,000 ML RTUINJ IV PRN (13:11)
[2019-08-12] MEDS ORDERED: ACETAMINOPHEN WITH CODEINE #3 TABLET PO PRN (13:11)
[2019-08-12] MEDS ORDERED: BENZOCAINE/MENTHOL AEROSOL SPRAY 56 ML TOP PRN (13:11)
[2019-08-12] MEDS ORDERED: DIPH/PERTUSS(ACELL)/TETANUS VAC/PF 0.5 ML SYR (>=10YO) IM PRN (13:11)
[2019-08-12 13:36] LABS: ABSOLUTE EOSINOPHILS # (AUTO) 0.1 10^3/uL (0.0-0.6); ABSOLUTE LYMPHOCYTES (AUTO) 1.1 10^3/uL (0.5-4.7); ABSOLUTE MONOCYTES (AUTO) 0.3 10^3/uL (0.1-1.4); ABSOLUTE NEUT (AUTO) 10.6 10^3/uL (1.7-8.2); BASOPHILS % (AUTO) 0.2 % (0-2); EOSINOPHILS % (AUTO) 0.7 % (0-6); HEMATOCRIT 33.1 % (36.0-47.0); HEMOGLOBIN 11.3 g/dL (12.0-15.5); LYMPHOCYTES % (AUTO) 8.9 % (13-45); MEAN CORPUSCULAR VOLUME 91 fl (80-97); MONOCYTES % (AUTO) 2.4 % (3-13); PLATELET COUNT 198 10^3/uL (150-450); RED BLOOD COUNT 3.63 10^6/uL (3.72-5.28); RED CELL DISTRIBUTION WIDTH 14.3 % (11.5-14.0); SEGMENTED NEUTROPHILS % (AUTO) 87.8 % (42-78); TOTAL CELLS COUNTED % (AUTO) 100 %; WHITE BLOOD COUNT 12.1 10^3/uL (4.0-10.5)
--- NOTE | 2019-08-12 14:06 | Delivery Summary ---
Del Sum A-C Datetime Report Generated by CPN: 08/12/2019 14:06 DELIVERY PERSONNEL DELIVERY PERSONNEL: [id number] Delivery Doctor:: Tyra Gonsalez MD Labor and Delivery Nurse:: Alivia Wyatt RNmotorcycle engine assembler Nurse:: Airam Muller RN Nursery Nurse:: Karyn Douglas RN Motion Picture Set Worker/SENIOR QUALITY TECHNICIAN: Brenda Marie, ST MATERNAL INFORMATION Delivery Anesthesia: Local Medications After Delivery: Pitocin Bolus-Please Comment; Pitocin Drip 20 Units/1000ml NSS Meds After Delivery Comment: Pitocin 20 units in 1 L NS bolusing per order Delivery QBL: 323 Maternal Complications: Precipitous Labor (<3hrs) Provider Comments: of a viable female at 1244 w/ an LINO w/right foot cord; APGARS 8, 9; 1st deg infraclitoral and 1st deg vaginal lacs LABOR SUMMARY EDC: 08/09/2019 00:00 No. Babies in Womb: 1 Attempted: No Labor Anesthesia: None LABOR INFORMATION Reason for Induction: Not Applicable Onset of Labor: 08/12/2019 11:04 Complete Dilatation: 08/12/2019 12:40 Oxytocin: N/A Group B Beta Strep: Negative Antibiotics # of Doses: 0 Antibiotics Time of Last Dose: n/a Name of Antibiotic Given: n/a Steroids Given: None Reason Steroids Not Administered: Not Applicable MEMBRANES Membranes Rupture Method: Artificial Rupture of Membranes: 08/12/2019 12:41 Length of Rupture (hr): 0.05 Amniotic Fluid Color: Moderate Meconium Amniotic Fluid Amount: Small Amniotic Fluid Odor: Normal STAGES OF LABOR Stage 1 hr: 1 Stage 1 min: 36 Stage 2 hr: 0 Stage 2 min: 4 Stage 3 hr: 0 Stage 3 min: 5 Total Time in Labor hr: 1 Total Time in Labor min: 45 VAGINAL DELIVERY Episiotomy: None Laceration #1: Periurethral Laceration Extension #1: First Degree Laceration #2: Vaginal Laceration Extension #2: First Degree Laceration Repair: Yes Laceration Repair Note: 1st degree infraclitoral and 1 st midline vaginal lac repaired with 3-0 Chromic Sponge Count Correct: Yes Sharps Count Correct: Yes CSECTION DELIVERY Primary Indication: N/A Secondary Indication: N/A CSection Incidence: N/A Labor: N/A Elective: N/A CSection Incision: N/A BABY A INFORMATION Delivery Date/Time: 08/12/2019 12:44 Method of Delivery: Vaginal Born in Route : No : N/A Forceps: N/A Vacuum Extraction: N/A Shoulder Dystocia : No PRESENTATION/POSITION BABY A Presentation: Cephalic Cephalic Presentation: Vertex Vertex Position: Left Occipital Anterior Breech Presentation: N/A PLACENTA INFORMATION BABY A Placenta Delivery Time : 08/12/2019 12:49 Placenta Method of Delivery: Spontaneous Placenta Status: Delivered SCORES BABY A Heart Rate 1 min: >100 bpm Resp Effort 1 min: Good Cry Reflex Irritability 1 min: Cough or Sneeze or Pulls Away Muscle Tone 1 min: Active Motion Color 1 min: Blue/Pale Resuscitation Effort 1 min: Tactile Stimulation SCORE 1 MIN: 8 Heart Rate 5 min: >100 bpm Resp Effort 5 min: Good Cry Reflex Irritability 5 min: Cough or Sneeze or Pulls Away Muscle Tone 5 min: Active Motion Color 5 min: Body [facility] [place], Extremities Blue Resuscitation Effort 5 min: Tactile Stimulation SCORE 5 MIN: 9 INFORMATION BABY A Gestational Age at Delivery: 40.3 Gestational Status: Full Term- 39- 40.6 Weeks Outcome : Liveborn Condition : Stable Sex: Female IDENTIFICATION BABY A Verification Date/Time: 08/12/2019 13:20 ID Band Number: [id number] Mother's Name Verified: Yes RN Verifying Infant: J, RN and B.Douglas, RN WEIGHT/LENGTH BABY A Birthweight (gm): 3114 Infant Weight (lb): 6 Weight (oz): 14 Infant Length (in): 19.25 Infant Length (cm): 48.90 CORD INFORMATION BABY A No. Cord Vessels: 3 Nuchal Cord : N/A Nuchal Cord- Other: right foot cord Cord Blood Taken: Yes-For Eval (Mom's Blood Type - or O+) Infant Suction: Mouth; Nose ASSESSMENT BABY A Physical Findings at Delivery: Within Normal Limits; [place] Spots Respirations: Appears Normal Skin to Skin: No Level Vial Inspector/ALS Called : No Infant Care By: Arely Douglas, RN Transferred To: Remains with Mother BABY B INFORMATION : N/A SIGNATURES Signature: with User ID: [email or web address]
[2019-08-12] MEDS ORDERED: IBUPROFEN 800 MG TABLET ONE (14:36)
[2019-08-12] MEDS: IBUPROFEN 800 MG TABLET PO SCH ×2 (14:42→21:46)
[2019-08-12] MEDS: FERROUS SULFATE 325 MG TABLET PO SCH (17:55)
[2019-08-12] MEDS: DOCUSATE SODIUM 100 MG CAPSULE PO SCH (17:55)
[2019-08-13] MEDS: IBUPROFEN 800 MG TABLET PO SCH ×3 (05:48→21:43)
[2019-08-13 07:06] LABS: HEMATOCRIT 28.6 % (36.0-47.0); HEMOGLOBIN 9.8 g/dL (12.0-15.5); MEAN CORPUSCULAR HGB CONC 34.4 g/dL (32.0-36.0); MEAN CORPUSCULAR VOLUME 90 fl (80-97); PLATELET COUNT 210 10^3/uL (150-450); RED BLOOD COUNT 3.17 10^6/uL (3.72-5.28); RED CELL DISTRIBUTION WIDTH 14.5 % (11.5-14.0); WHITE BLOOD COUNT 11.8 10^3/uL (4.0-10.5)
[2019-08-13] MEDS: FERROUS SULFATE 325 MG TABLET PO SCH ×2 (10:27→17:33)
[2019-08-13] MEDS: PRENATAL VITAMIN W DHA CAPSULE PO SCH (10:27)
[2019-08-13] MEDS: DOCUSATE SODIUM 100 MG CAPSULE PO SCH ×2 (10:27→17:33)
[2019-08-13] MEDS: SENNOSIDES/DOCUSATE 8.6-50 MG 1 EACH TABLET PO SCH (10:27)
--- NOTE | 2019-08-13 10:48 | PDOC PROGRESS REPORT ---
Subjective-OB Progress Note for:: 08/13/19 Physical Exam (OB) Vital Signs: Temp Pulse Resp BP Pulse Ox 98.1 F 73 16 118/59 L 98 08/13/19 07:15 08/13/19 07:15 08/13/19 07:15 08/13/19 07:15 08/13/19 07:15 Intake & Output 08/12/19 08/13/19 08/14/19 06:59 06:59 06:59 Weight 88.9 kg - PIH/Pre-Eclampsia DTR's: 2 + Clonus: Negative Headache: Absent Epigastric Pain: No Visual Changes: No - Lochia Lochia Amount: Small 10-25 ml Lochia Color: Rubra/Red - Abdomen Description: Soft, Round Hernia Present: No Bowel Sounds: Normoactive Flatus Presence: Present Stool: No Fundal Description: Firm, Midline Fundal Height: u/u - u/2 Objective-Diagnostic Laboratory: 08/13/19 06:15 08/12/19 08/12/19 08/12/19 10:56 13:01 13:01 WBC 12.1 H RBC 3.63 L Hgb 11.3 L Hct 33.1 L MCV 91 MCH 31.0 MCHC 34.0 RDW 14.3 H Plt Count 198 Seg Neutrophils % 87.8 H Urine Color YELLOW Urine Appearance SLIGHTLY-CLOUDY Urine pH 6.0 Ur Specific [place] 1.016 Urine Protein NEGATIVE Urine Glucose (UA) NEGATIVE Urine Ketones NEGATIVE Urine Blood MODERATE H Urine Nitrite NEGATIVE Ur Leukocyte Esterase NEGATIVE Blood Type O POSITIVE Antibody Screen NEGATIVE 08/13/19 06:15 WBC 11.8 H RBC 3.17 L Hgb 9.8 L Hct 28.6 L MCV 90 MCH 31.0 MCHC 34.4 RDW 14.5 H Plt Count 210 Seg Neutrophils % Urine Color Urine Appearance Urine pH Ur Specific [place] Urine Protein Urine Glucose (UA) Urine Ketones Urine Blood Urine Nitrite Ur Leukocyte Esterase Blood Type Antibody Screen
[2019-08-13] MEDS: ACETAMINOPHEN WITH CODEINE #3 TABLET PO PRN (21:49)
[2019-08-14] MEDS: IBUPROFEN 800 MG TABLET PO SCH (05:08)
[2019-08-14] MEDS: ACETAMINOPHEN WITH CODEINE #3 TABLET PO PRN (05:09)
[2019-08-14 08:09] VITALS: BP 115/61
[2019-08-14] MEDS: SENNOSIDES/DOCUSATE 8.6-50 MG 1 EACH TABLET PO SCH (09:35)
[2019-08-14] MEDS: FERROUS SULFATE 325 MG TABLET PO SCH (09:35)
[2019-08-14] MEDS: DOCUSATE SODIUM 100 MG CAPSULE PO SCH (09:36)
[2019-08-14] MEDS: PRENATAL VITAMIN W DHA CAPSULE PO SCH (09:36)
--- NOTE | 2019-08-14 10:01 | PDOC PROGRESS REPORT ---
Subjective-OB Progress Note for:: 08/14/19 Subjective: Doing well, ready to go home, hsb and baby in room, bottle feeding, scant bleeding Physical Exam (OB) Vital Signs: Temp Pulse Resp BP Pulse Ox 97.5 F 69 12 115/61 99 08/14/19 08:08 08/14/19 08:08 08/14/19 08:08 08/14/19 08:08 08/14/19 08:08 Intake & Output 08/13/19 08/14/19 08/15/19 06:59 06:59 06:59 Intake Total 600 Balance 600 Weight 88.9 kg - PIH/Pre-Eclampsia DTR's: 2 + Clonus: Negative Headache: Absent Epigastric Pain: No Visual Changes: No - Lochia Lochia Amount: Scant < 10 ml Lochia Color: Serosa/Brown - Abdomen Description: Soft Hernia Present: No Fundal Description: Firm, Midline Fundal Height: u/u - u/2 Objective-Diagnostic Laboratory: 08/13/19 06:15 Assessment and Plan(PN) - Assessment and Plan (1) Delivery normal Is this a current diagnosis for this admission?: Yes (2) Smoker Is this a current diagnosis for this admission?: Yes (3) GDM (gestational diabetes mellitus) Is this a current diagnosis for this admission?: No (4) Delivery normal Is this a current diagnosis for this admission?: Yes - Time Spent with Patient Time with patient: Less than 15 minutes Medications reviewed and adjusted accordingly: Yes - Disposition Anticipated Discharge: Home Within: within 24 hours
--- NOTE | 2019-08-14 10:04 | PDOC DISCHARGE SUMMARY ---
Impression - Admit/DC Date/PCP Admission Date/Primary Care Provider: 08/12/19 11:45 NAYA AJ DO Discharge Date: 08/14/19 - Discharge Diagnosis (1) Delivery normal Is this a current diagnosis for this admission?: Yes (2) Smoker Is this a current diagnosis for this admission?: Yes (3) GDM (gestational diabetes mellitus) Is this a current diagnosis for this admission?: No (4) Delivery normal Is this a current diagnosis for this admission?: Yes - Assessment Summary: Admitted in labor, arom, female, apgars 8/9, mod mec, wt 6-14 - Additional Information Resuscitation Status: Full Code Discharge Diet: As Tolerated, Regular Discharge Activity: Activity As Tolerated, No Lifting Over 10 Pounds, No Lifting/Push/Pulling, Pelvic Rest Referrals: NAYA DURAND DO [Primary Care Provider] - Home Medications: 105/Iron/Folic AC/Dha [Prena1 True Combo Pack] 1 each PO DAILY #30 combo..pkg 06/07/17 Results Laboratory Results: WBC 11.8 10^3/uL (4.0-10.5) H 08/13/19 06:15 RBC 3.17 10^6/uL (3.72-5.28) L 08/13/19 06:15 Hgb 9.8 g/dL (12.0-15.5) L 08/13/19 06:15 Hct 28.6 % (36.0-47.0) L 08/13/19 06:15 MCV 90 fl (80-97) 08/13/19 06:15 MCH 31.0 pg (27.0-33.4) 08/13/19 06:15 MCHC 34.4 g/dL (32.0-36.0) 08/13/19 06:15 RDW 14.5 % (11.5-14.0) H 08/13/19 06:15 Plt Count 210 10^3/uL (150-450) 08/13/19 06:15 Lymph % (Auto) 8.9 % (13-45) L 08/12/19 13:01 [place] % (Auto) 2.4 % (3-13) L 08/12/19 13:01 Eos % (Auto) 0.7 % (0-6) 08/12/19 13:01 Baso % (Auto) 0.2 % (0-2) 08/12/19 13:01 Absolute Neuts (auto) 10.6 10^3/uL (1.7-8.2) H 08/12/19 13:01 Absolute Lymphs (auto) 1.1 10^3/uL (0.5-4.7) 08/12/19 13:01 Absolute Monos (auto) 0.3 10^3/uL (0.1-1.4) 08/12/19 13:01 Absolute Eos (auto) 0.1 10^3/uL (0.0-0.6) 08/12/19 13:01 Absolute Basos (auto) 0.0 10^3/uL (0.0-0.2) 08/12/19 13:01 Seg Neutrophils % 87.8 % (42-78) H 08/12/19 13:01 Urine Color YELLOW 08/12/19 10:56 Urine Appearance SLIGHTLY-CLOUDY 08/12/19 10:56 Urine pH 6.0 (5.0-9.0) 08/12/19 10:56 Ur Specific [place] 1.016 08/12/19 10:56 Urine Protein NEGATIVE mg/dL (NEGATIVE) 08/12/19 10:56 Urine Glucose (UA) NEGATIVE mg/dL (NEGATIVE) 08/12/19 10:56 Urine Ketones NEGATIVE mg/dL (NEGATIVE) 08/12/19 10:56 Urine Blood MODERATE (NEGATIVE) H 08/12/19 10:56 Urine Nitrite NEGATIVE (NEGATIVE) 08/12/19 10:56 Urine Bilirubin NEGATIVE (NEGATIVE) 08/12/19 10:56 Urine Urobilinogen NEGATIVE mg/dL (<2.0) 08/12/19 10:56 Ur Leukocyte Esterase NEGATIVE (NEGATIVE) 08/12/19 10:56 Urine Ascorbic Acid NEGATIVE (NEGATIVE) 08/12/19 10:56 Urine Opiates Screen NEGATIVE 08/12/19 10:56 Urine Methadone Screen NEGATIVE 08/12/19 10:56 Ur Barbiturates Screen NEGATIVE 08/12/19 10:56 Ur Phencyclidine Scrn NEGATIVE 08/12/19 10:56 Ur Amphetamines Screen NEGATIVE 08/12/19 10:56 U Benzodiazepines Scrn NEGATIVE 08/12/19 10:56 Urine Cocaine Screen NEGATIVE 08/12/19 10:56 U Marijuana (THC) Screen NEGATIVE 08/12/19 10:56 RPR NONREACTIVE (NONREACTIVE) 08/12/19 13:01 Blood Type O POSITIVE 08/12/19 13:01 Antibody Screen NEGATIVE 08/12/19 13:01
== END 2019-08-14 14:45 | disposition home or self-care (01) | DRG 807 ==
LOC: LC 10:49 → LR 11:45 → 2N 15:20
PROVIDERS: ADMIT Obstetrics & Gynecology; ATTEND Obstetrics & Gynecology
PROC: 10E0XZZ Delivery of Products of Conception, External Approach (ICD-10-PCS; principal; 2019-08-12)
PROC: 0HQ9XZZ Repair Perineum Skin, External Approach (ICD-10-PCS; 2019-08-12)
DX: O62.3 Precipitate labor (principal); Z37.0 Single live birth; O69.2XX0 Labor and delivery complicated by other cord entanglement, with compression, not applicable or unspecified; O70.0 First degree perineal laceration during delivery; O77.0 Labor and delivery complicated by meconium in amniotic fluid; Z3A.40 40 weeks gestation of pregnancy; O24.429 Gestational diabetes mellitus in childbirth, unspecified control
CPT/HCPCS: 36415; 80307; 81005; 85025; 85027; 86592; 86850; 86900; 86901; J2590; J3490

== ENCOUNTER 2019-08-18 16:35 | Emergency (ER) | payer MEDICAID ==
[2019-08-18] MEDS ORDERED: PROCHLORPERAZINE EDISYLATE INJ 10 MG/2 ML VIAL IV ONE (16:57)
[2019-08-18] MEDS ORDERED: DIPHENHYDRAMINE HCL 50 MG/ML VIAL IV ONE (16:57)
[2019-08-18] MEDS ORDERED: NORMAL SALINE 500 ML IV ONE (16:58)
--- NOTE | 2019-08-18 17:00 | ER Document Report ---
ED Medical Screen (RME) - General Chief Complaint: Headache Stated Complaint: HEADACHE Time Seen by Provider: 08/18/19 16:53 Primary Care Provider: NAYA DURAND DO [Primary Care Provider] - Follow up as needed Mode of Arrival: Ambulatory Information source: Patient Notes: 29-year-old female presented to ED for complaint of headache that feels like it is going to explode. She states she took some BC just before coming to the emergency room. She states she is been taken Tylenol Motrin and BC. She just had a baby 5 days ago. She states normally she has a headache once every month or so and it was lasted for 2 days. She states she does smoke half pack a day but does not drink or do drugs. I have ordered her some Benadryl Compazine IV with some IV fluids but these cannot be done until she started in the room. I have also ordered some labs and urine because the fact that she just had a baby 5 days ago. I have greeted and performed a rapid initial assessment of this patient. A comprehensive ED assessment and evaluation of the patient, analysis of test results and completion of medical decision making process will be conducted by an additional ED providers. TRAVEL OUTSIDE OF THE [place] IN LAST 30 DAYS: No - Related Data Allergies/Adverse Reactions: No Known Allergies Allergy (Verified 08/18/19 16:53) Past Medical History - Social History Chew tobacco use (# tins/day): No Frequency of alcohol use: None Drug Abuse: None Renal/ Medical History: Denies: Hx End Stage Renal Disease, Hx Hemodialysis, Hx Kidney Stones, Hx Ovarian Cysts, Hx Peritoneal Dialysis, Hx Pelvic Inflammatory Disease, Hx Renal Insufficiency - Immunizations Immunizations up to date: No Hx Diphtheria, Pertussis, Tetanus Vaccination: No Physical Exam - Vital signs Vitals: Temp Pulse Resp BP Pulse Ox 98.3 F 63 18 124/80 100 08/18/19 16:44 08/18/19 16:44 08/18/19 16:44 08/18/19 16:44 08/18/19 16:44 Course - Vital Signs Vital signs: Temp Pulse Resp BP Pulse Ox 98.3 F 63 18 124/80 100 08/18/19 16:44 08/18/19 16:44 08/18/19 16:44 08/18/19 16:44 08/18/19 16:44 Doctor's Discharge - Discharge Referrals: NAYA DURAND DO [Primary Care Provider] - Follow up as needed
[2019-08-18 18:15] LABS: ABSOLUTE EOSINOPHILS # (AUTO) 0.3 10^3/uL (0.0-0.6); ABSOLUTE LYMPHOCYTES (AUTO) 1.7 10^3/uL (0.5-4.7); ABSOLUTE MONOCYTES (AUTO) 0.4 10^3/uL (0.1-1.4); ABSOLUTE NEUT (AUTO) 7.8 10^3/uL (1.7-8.2); APPEARANCE,URINE SLIGHTLY-CLOUDY; BASOPHILS % (AUTO) 0.3 % (0-2); BILIRUBIN,URINE NEGATIVE (NEGATIVE); COLOR,URINE YELLOW; GLUCOSE, URINE NEGATIVE (NEGATIVE); HEMATOCRIT 34.4 % (36.0-47.0); HEMOGLOBIN 11.7 g/dL (12.0-15.5); KETONES,URINE NEGATIVE (NEGATIVE); LEUKOCYTE ESTERASE,URINE LARGE (NEGATIVE); LYMPHOCYTES % (AUTO) 16.7 % (13-45); MEAN CORPUSCULAR HEMOGLOBIN 30.7 pg (27.0-33.4); MEAN CORPUSCULAR VOLUME 90 fl (80-97); MONOCYTES % (AUTO) 3.8 % (3-13); NITRITE,URINE NEGATIVE (NEGATIVE); PLATELET COUNT 316 10^3/uL (150-450); PROTEIN,URINE 30 mg/dL (NEGATIVE); RED BLOOD COUNT 3.81 10^6/uL (3.72-5.28); SEGMENTED NEUTROPHILS % (AUTO) 76.2 % (42-78); TOTAL CELLS COUNTED % (AUTO) 100 %; URINE SPECIFIC GRAVITY 1.005; UROBILINOGEN,URINE NEGATIVE mg/dL (<2.0); WHITE BLOOD COUNT 10.2 10^3/uL (4.0-10.5)
[2019-08-18 18:42] LABS: ALBUMIN 4.1 g/dL (3.5-5.0); ALKALINE PHOSPHATASE 83 U/L (38-126); ANION GAP 13 (5-19); ASPARTATE AMINO TRANSFERASE 22 U/L (14-36); BILIRUBIN,DIRECT 0.2 mg/dL (0.0-0.4); BILIRUBIN,TOTAL 0.3 mg/dL (0.2-1.3); BLOOD UREA NITROGEN 8 mg/dL (7-20); CALCIUM 9.8 mg/dL (8.4-10.2); CARBON DIOXIDE 25 mmol/L (22-30); CHLORIDE 103 mmol/L (98-107); GLUCOSE 99 mg/dL (75-110); POTASSIUM 3.6 mmol/L (3.6-5.0); TOTAL PROTEIN 7.4 g/dL (6.3-8.2)
[2019-08-18] MEDS ORDERED: KETOROLAC TROMETHAMINE INJ/PF 30 MG/1 ML SDV IV ONE (19:16)
[2019-08-18] MEDS ORDERED: DEXAMETHASONE SOD PHOS INJ 10 MG/1 ML VIAL IV ONE (19:16)
[2019-08-18 20:28] VITALS: BP 124/85
[2019-08-18] MEDS ORDERED: CEPHALEXIN 500 MG CAPSULE PO ONE (20:37)
--- NOTE | 2019-08-18 20:37 | ER Document Report ---
ED Headache - General Chief Complaint: Headache Stated Complaint: HEADACHE Time Seen by Provider: 08/18/19 16:53 Primary Care Provider: NAYA DURAND DO [ACTIVE STAFF] - Follow up as needed Mode of Arrival: Ambulatory Notes: Patient is a 29-year-old female who presents to the emergency department with a chief complaint of headache. Patient reports she is had a headache for 2 days. Patient reports she is 5 days post vaginal delivery. Patient reports that she had an uneventful without preeclampsia or eclampsia/hypertension and did have a normal vaginal delivery without complication. Patient states she does normally get headaches once a month. Patient reports is stabbing in nature. Patient reports this is localized throughout her whole head. Patient reports she is light sensitive. Patient reports she is taking Motrin, Tylenol and BC powders without much relief. Patient reports she is not currently breast-feeding. Patient reports she did vomit once. TRAVEL OUTSIDE OF THE [place] IN LAST 30 DAYS: No - Related Data Allergies/Adverse Reactions: No Known Allergies Allergy (Verified 08/18/19 16:53) Past Medical History - General Information source: Patient - Social History Smoking Status: Never Smoker Chew tobacco use (# tins/day): No Frequency of alcohol use: None Drug Abuse: None Lives with: Family Family History: CAD, CVA, DM, Hyperlipidemia, Hypertension, Malignancy, Thyroid Disfunction, Other - Mother has asthma Patient has suicidal ideation: No Patient has homicidal ideation: No - Past Medical History Cardiac Medical History: Reports: None Pulmonary Medical History: Reports: None EENT Medical History: Reports: None Neurological Medical History: Reports: None Endocrine Medical History: Reports: None Renal/ Medical History: Reports: None. Denies: Hx End Stage Renal Disease, Hx Hemodialysis, Hx Kidney Stones, Hx Ovarian Cysts, Hx Peritoneal Dialysis, Hx Pelvic Inflammatory Disease, Hx Renal Insufficiency Malignancy Medical History: Reports: None GI Medical History: Reports: None Musculoskeletal Medical History: Reports None Skin Medical History: Reports None Psychiatric Medical History: Reports: None Traumatic Medical History: Reports: None Infectious Medical History: Reports: None Surgical Hx: Negative - Immunizations Immunizations up to date: No Hx Diphtheria, Pertussis, Tetanus Vaccination: No Review of Systems - Review of Systems Constitutional: No symptoms reported EENT: See HPI Cardiovascular: No symptoms reported Respiratory: No symptoms reported Gastrointestinal: No symptoms reported Genitourinary: No symptoms reported Female Genitourinary: No symptoms reported Musculoskeletal: No symptoms reported Skin: No symptoms reported Hematologic/Lymphatic: No symptoms reported Neurological/Psychological: See HPI Physical Exam - Vital signs Vitals: Temp Pulse Resp BP Pulse Ox 98.3 F 63 18 124/80 100 08/18/19 16:44 08/18/19 16:44 08/18/19 16:44 08/18/19 16:44 08/18/19 16:44 Interpretation: Normal - Notes Notes: GENERAL: Well-appearing, well-nourished and in no acute distress. HEAD: Atraumatic, normocephalic. EYES: Pupils equal round and reactive to light, extraocular movements intact, sclera anicteric, conjunctiva are normal. ENT: Nares patent, oropharynx clear without exudates. Moist mucous membranes. NECK: Normal range of motion, supple without lymphadenopathy or JVD. LUNGS: Breath sounds clear to auscultation bilaterally and equal. No wheezes rales or rhonchi. HEART: Regular rate and rhythm without murmurs, rubs or gallops. ABDOMEN: Soft, round, nontender, normoactive bowel sounds. No guarding, no rebound. No masses appreciated. BACK: No cervical, thoracic, lumbar midline tenderness. No saddle anesthesia, normal distal neurovascular exam. GENITOURINARY: Deferred. EXTREMITIES: Normal range of motion, no pitting or edema. No clubbing or cyan osis. NEUROLOGICAL: Cranial nerves II through XII grossly intact. Normal speech, normal gait. PSYCH: Normal mood, normal affect. SKIN: Warm, Dry, normal turgor, no rashes or lesions noted. Course - Re-evaluation Re-evalutation: 08/18/19 20:34 Upon initial examination of the patient she is resting comfortably and sleeping. Patient is extremely drowsy but did receive Benadryl. Patient went awake complains of a 4 out of 5 headache. Patient reports she is not currently breast-feeding. I did give the patient a dose of Toradol and Decadron. Patient reports her headache is now a 2 out of 5 and she feels much better. Patient has been able to tolerate liquids without vomiting. Did inform the patient to follow-up with her [employer] tomorrow for a follow-up since she is 5 days . Patient's vital signs are stable she does not show high blood pressure. Patient's lab work is unremarkable, patient does have a urinary tract infection. - Vital Signs Vital signs: Temp Pulse Resp BP Pulse Ox 97.8 F 58 L 15 124/85 99 08/18/19 20:27 08/18/19 20:27 08/18/19 20:27 08/18/19 20:27 08/18/19 20:27 - Laboratory Result Diagrams: 08/18/19 17:25 08/18/19 17:25 Laboratory results interpreted by me: 08/18/19 08/18/19 08/18/19 17:25 17:25 17:25 Hgb 11.7 L Hct 34.4 L Creatinine 0.44 L Urine Protein 30 H Urine Blood LARGE H Ur Leukocyte Esterase LARGE H 08/18/19 20:38 Patient does have a large amount of leukocytes in the urine. Patient does not have any significant leukocytosis, anemia, alteration in the electrolytes, kidney function or liver function. Laboratory 08/18/19 08/18/19 08/18/19 17:25 17:25 17:25 WBC 10.2 RBC 3.81 Hgb 11.7 L Hct 34.4 L MCV 90 MCH 30.7 MCHC 34.0 RDW 14.0 Plt Count 316 Lymph % (Auto) 16.7 [place] % (Auto) 3.8 Eos % (Auto) 3.0 Baso % (Auto) 0.3 Absolute Neuts (auto) 7.8 Absolute Lymphs (auto) 1.7 Absolute Monos (auto) 0.4 Absolute Eos (auto) 0.3 Absolute Basos (auto) 0.0 Seg Neutrophils % 76.2 Sodium 140.6 Potassium 3.6 Chloride 103 Carbon Dioxide 25 Anion Gap 13 BUN 8 Creatinine 0.44 L Est GFR ( Amer) > 60 Est GFR (MDRD) Non-Af > 60 Glucose 99 Calcium 9.8 Total Bilirubin 0.3 Direct Bilirubin 0.2 Neonat Total Bilirubin Not Reportable Neonat Direct Bilirubin Not Reportable Neonat Indirect Bili Not Reportable AST 22 ALT 14 Alkaline Phosphatase 83 Total Protein 7.4 Albumin 4.1 Urine Color YELLOW Urine Appearance SLIGHTLY-CLOUDY Urine pH 6.0 Ur Specific [place] 1.005 Urine Protein 30 H Urine Glucose (UA) NEGATIVE Urine Ketones NEGATIVE Urine Blood LARGE H Urine Nitrite NEGATIVE Urine Bilirubin NEGATIVE Urine Urobilinogen NEGATIVE Ur Leukocyte Esterase LARGE H Urine WBC (Auto) 125 Urine RBC (Auto) 8 Urine Bacteria (Auto) 1+ Squamous Epi Cells Auto 3 Urine Mucus (Auto) RARE Urine Ascorbic Acid NEGATIVE Discharge - Discharge Clinical Impression: Headache Qualifiers: Headache type: unspecified Headache chronicity pattern: unspecified pattern I ntractability: not intractable Qualified Code(s): R51 - Headache Urinary tract infection Qualifiers: Urinary tract infection type: site unspecified Hematuria presence: with hematuria Qualified Code(s): N39.0 - Urinary tract infection, site not specified Condition: Stable Disposition: HOME, SELF-CARE Instructions: Antinausea Medication ([facility]), Intravenous Compazine for Headaches ([facility]), Use of Diphenhydramine, Headache ([facility]), Toradol Injection ([facility]) Additional Instructions: Today you are seen in the emergency department for headache. Your vital signs were stable and your blood work was unremarkable. You do have a urinary tract infection. I will treat you with your first dose of oral antibiotic prior to discharge. You will receive a prescription when she need to have filled. Please call your [employer] tomorrow to schedule a follow-up appointment as you are 5 days . Please drink plenty of fluids to stay hydrated and take your oral antibiotics to treat your urinary tract infection. Please return the emergency department if you develop a fever, inability to move your neck, stiff neck, severe headache, vomiting that is uncontrolled or if you have any other concerning signs or symptoms. You did receive a dose of IV Benadryl which does make you drowsy. Do not drive until you are fully awake. HEADACHE: The physician does not feel that the headache you are experiencing has a serious underlying cause. Most headaches are due to emotional stress, with resultant muscle tension (tension headache). Occasionally, headaches are secondary to changes in the blood vessels of the scalp (vascular headache and migraine headache). Sometimes, a headache is the first symptom of another developing illness, such as a viral infection. You have no evidence of stroke, bleeding, meningitis, or other serious cause of your headache. The treatment of headaches varies with the severity and cause of the pain. Not all headaches need pain shots. In fact, there is evidence that using narcotics for headaches may make them worse in the long run. The physician will determine the therapy that's in your best interest. If you develop a fever, if the headache is different from any you've previously experienced, or if the headache progressively worsens, then call your physician at once or go to the emergency room. REGLAN (METOCLOPRAMIDE): Reglan has been prescribed. This medicine affects the stomach and intestines. It can be used to treat nausea and vomiting, to prevent reflux of stomach acid up into the esophagus, or to increase the contractions of the stomach and intestines. It is often prescribed for esophagitis, and for paralysis of the stomach in diabetics. Reglan can cause either mild restlessness or drowsiness. You should contact the doctor at once if you become extremely restless, anxious, or cannot sleep, or if you develop uncontrollable motions of the lips, tongue, or jaw. Do not take alcohol with this medicine. Do not drive or operate machinery until you have been taking this medicine long enough to know how it affects you. Call the doctor if you develop abdominal pains, lightheadedness, black stool, or blood in the stool or vomitus. USE OF DIPHENHYDRAMINE: Diphenhydramine (Benadryl) is an antihistamine and has been recommended to help treat your headache and to prevent side effects of other medications used to treat headaches. The medication can be repeated four times daily. Age Elixir (12.5 mg/tsp) 25 mg pill adult 1-2 tabs Antihistamines may cause drowsiness, especially with the first dose. Do not operate machinery or drive while under the effects of the medication. Do not combine the medication with alcohol, or with any other medication without talking to your doctor. ANTINAUSEA MEDICATION: You have been given a medication to suppress nausea and vomiting. This type of medication can be given as a shot, pill, or suppository. It will usually last for many hours. Pills and shots usually last six to eight hours, suppositories last about 12 hours. For the typical illness, only one or two doses of the medication may be necessary. Mild lightheadedness may occur. This type of medicine can cause drowsiness. Do not drive or operate dangerous machinery while under its influence. Do not mix with alcohol. See your doctor at once if you have muscle spasms or tightness, or uncontrollable motions (particularly of the neck, mouth, or jaw). Persistent vomiting or severe lightheadedness should also be evaluated by the physician. INTRAVENOUS COMPAZINE FOR HEADACHE: You have received therapy for headaches, using intravenous Compazine. This treatment is dramatically successful in relieving the headache in about 50 percent of cases. When it works, it provides a rapid method of eliminating the headache without resorting to narcotics (and the problems associated with them). Most patients still feel fully alert after the Compazine, but others may be slightly drowsy. It's best not to drive or work with machinery for six to eight hours. Do not take alcohol or other medication unless you discuss it with the doctor. If you develop tightness and spasms in your muscles, especially the neck and tongue, you should return. This is a side effect which can be treated. TORADOL INJECTION: You have been given an injection of ketorolac tromethamine (Toradol). This is an excellent, safe drug for pain control. It also has potent antiinfl ammatory action. You should have significant pain relief within about one hour. Toradol is not addicting and is non-sedating. It does not interfere with driving or work. Call or return if you develop itching, hives, shortness of breath, or rash. PAIN MEDICATION INJECTION: You have received an injection of a pain medication. You should experience significant pain relief within 45 minutes. This drug is a narcotic -- it will impair your judgement, slow your reaction time and make you sleepy (as well as relieve your pain). Narcotics also can cause nausea. You should not drive, work with machinery, or perform any task requiring mental alertness until all effects of the medication are gone -- six to eight hours. Do not take any alcohol, or sedatives, and do not take any other medication without checking with your physician. FOLLOW-UP CARE: If you have been referred to a physician for follow-up care, call the physicians office for an appointment as you were instructed or within the next two days. If you experience worsening or a significant change in your symptoms, notify the physician immediately or return to the Emergency Department at any time for re-evaluation. Prescriptions: Cephalexin Monohydrate [Keflex 500 mg Capsule] 500 mg PO BID 7 Days #14 capsule Referrals: NAYA DURAND, [ACTIVE STAFF] - Follow up as needed
== END 2019-08-18 20:50 | disposition home or self-care (01) ==
LOC: ER 16:35
DX: O90.89 Other complications of the puerperium, not elsewhere classified (principal); R51 Headache; H53.149 Visual discomfort, unspecified; R11.10 Vomiting, unspecified; R40.0 Somnolence; R31.9 Hematuria, unspecified; O86.20 Urinary tract infection following delivery, unspecified
CPT/HCPCS: 36415; 87086; 85025; 80053; 81001; J1200; J1885; J0780; J7040; J1100